=== PATIENT | female | born 1985 | race Caucasian/White ===

== ENCOUNTER 2016-11-07 19:04 | Observation (INO) | payer OTHER ==
[2016-11-07] MEDS ORDERED: LORazepam 2 MG/1 ML VIAL ONE (19:26)
[2016-11-07] MEDS ORDERED: LORazepam 2 MG/1 ML VIAL IVP ONE (19:30)
[2016-11-07] MEDS ORDERED: ONDANSETRON 4 MG/2 ML VIAL ONE (19:34)
[2016-11-07] MEDS ORDERED: Sodium Chloride 0.9% 1,000 ML ONE (19:34)
[2016-11-07] MEDS ORDERED: Sodium Chloride 0.9% 1,000 ML PRIMARY IV ONE ×3 (19:36→22:30)
[2016-11-07 19:42] LABS: BASOPHILS # (AUTO) 0.04 10*3/UL; BASOPHILS % (AUTO) 0.4 % (0-1); EOSINOPHILS % (AUTO) 1.4 % (0-8); HEMATOCRIT 38.7 % (37.0-47.0); HEMOGLOBIN 13.9 g/dL (12.0-16.0); IMM GRAN % (AUTO) 0.1 % (0-5); IMM GRAN# (AUTO) 0.01 10*3/UL; LYMPHOCYTES # (AUTO) 2.81 10*3/uL; LYMPHOCYTES % (AUTO) 30.9 % (10-50); MEAN CORPUSCULAR HEMOGLOBIN 34.3 PG (27-31); MEAN CORPUSCULAR HGB CONC 35.9 g/dL (33-37); MEAN PLATELET VOLUME 11.2 FL (7.4-12.2); MONOCYTES # (AUTO) 1.01 10*3/UL (0.3-0.8); MONOCYTES % (AUTO) 11.1 % (5-15); NEUTROPHILS # (AUTO) 5.08 10*3/UL; NEUTROPHILS % (AUTO) 56.1 % (50-80); RED BLOOD COUNT 4.05 10^6/uL (4.20-5.40); WHITE BLOOD COUNT 9.08 10^3/uL (4.8-10.8)
--- NOTE | 2016-11-07 19:42 | PDOC ---
Chest Pain HPI - General Chief Complaint: Chest Pain Stated Complaint: CHEST PAIN Date Seen by Provider: 11/07/16 Time Seen by Provider: 19:37 Source: Patient, Spouse Exam Limitations: POSITIVE: No limitations Treatment Prior to Arrival: REPORTS: None Nurse's Notes Reviewed & Considered: Yes - History of Present Illness Body Location Affected: REPORTS: Chest, Abdomen Timing: REPORTS: Abrupt, Getting Worse Duration: <24 hours Severity: Severe Context: REPORTS: Activity Quality: REPORTS: Pressure, Other (tachycardia) Radiation: REPORTS: None Associated Symptoms: REPORTS: Nausea, Vomiting, Shortness of Breath, Palpitations, Weakness Modifying Factors: improves with: None Reported Similar Symptoms Previously: No Any Prior Injuries Related to Current Complaint?: No - Patient Home Medications Home Medications: Home Medications Vits W-Ca,Fe,FA(<1Mg) [] 1 tab ORAL QD tab 10/07/12 Melatonin 10 mg PO PRN tab 05/15/16 Amitriptyline HCl 150 mg PO DAILY #30 tab 10/22/16 - Patient Allergies Allergies/Adverse Reactions: Allergies Allergy/AdvReac Type Severity Reaction Status Date / Time iodine Allergy Mild Anaphylaxis Verified 11/08/16 07:24 SEAFOOD Allergy Mild Anaphylaxis Uncoded 11/08/16 07:24 SEASONAL Allergy HEADACHE Uncoded 11/08/16 07:24 Past Medical History - heen HEENT History: Denies History Additional HEENT History: CHRONIC OTITIS MEDIA Cardiovascular History: Denies History Respiratory History: Denies History Gastrointestinal History: GERD, GI Bleed, Other (please comment) Additional Gastrointestinal History: 07/25 EGD DONE, FOUND ULCER AND HEMORRHAGIC GASTRICITIS Genitourinary History: Denies History Endocrine History: Denies History Musculoskeletal History: Denies History Neurological History: Denies History Blood Disorders: Denies History Psychiatric History: Depression, Anxiety Disorders, PTSD Additional Psychiatric History: LAST PANIC ATTACT, 3 MONTHS AGO History of Sexually Transmitted Diseases: No Cancer History: Denies History History of MDRO: Yes History of Other Communicable Diseases: No Alcohol Use: None Substance Use Type: None Previous Surgical History: Yes Anesthesia Reactions: No Malignant Hyperthermia: No Significant Family History: Cancer, Diabetes Additional Family History: MOTHER- CA, DMFATHER- CA, DM ROS - Limitations ROS Limitations: No Limitations Constitution: REPORTS: Diaphoresis Cardiovascular: REPORTS: Chest Pain, Heart Racing, Heart Palpitations Respiratory: REPORTS: Shortness Of Breath Neurological: REPORTS: Denies Neuro Symptoms Gastrointestinal: REPORTS: Nausea, Vomitting, Diarrhea Endocrine: REPORTS: Denies Symptoms Musculoskeletal: REPORTS: Denies MS Symptoms Genitourinary: REPORTS: Denies Symptoms Eyes: REPORTS: Denies Symptoms ENT: REPORTS: Denies Symptoms Skin: REPORTS: Denies Skin Symptoms Lympathic: REPORTS: Denies Lympathic Symptoms Immunologic: POSITIVE: Denies Symptoms Psychiatric: POSITIVE: Anxiety Chest Pain PE - General Appearance General Appearance: REPORTS: Cooperative, No Acute Distress, No Evidence of Trauma, Anxious - HEENT HEENT: POSITIVE: Head Inspection Nml, Eyes Inspection Nml, Ears Inspection Nml, Nose Inspection Nml, Oral/Dental Inspect. Nml, Pharynx Inspect. Nml, PERRL, EOMI - Neck Neck: REPORTS: Normal Inspection - Respiratory Respiratory: REPORTS: No Respiratory Distress, Breath Sounds Normal, Chest Non- Tender - Cardiovascular Cardiovascular: REPORTS: Regular Rate and Rhythm, Heart Sounds Normal - Abdomen Abdomen: Soft: (All Quadrants), Normal Bowel Sounds: (All Quadrants), Denies Tenderness: (All Quadrants) - Skin Skin: REPORTS: Intact, Normal For Race, Warm, Dry, No Rash - Extremities Extremity: Non-Tender: (All Extremities), Normal ROM: (All Extremities), Normal Inspection: (All Extremities) - Neurological / Psychological Neurological: POSITIVE: Affect Apporpriate, Oriented X3 Chest Pain Progress - Results Reviewed by me Xrays/CTs/US Reviewed by me: Yes Lab Results Reviewed: Yes Lab Results:: Laboratory Results 11/07/16 11/07/16 Range/Units 19:36 19:44 WBC 9.08 (4.8-10.8) 10^3/uL RBC 4.05 L (4.20-5.40) 10^6/uL Hgb 13.9 (12.0-16.0) g/dL Hct 38.7 (37.0-47.0) % MCV 95.6 (81-99) FL MCH 34.3 H (27-31) PG MCHC 35.9 (33-37) g/dL RDW Std Deviation 41.2 (39-50) fL RDW Coeff of Drew 12.0 (11.5-14.5) % Plt Count 265 (140-350) 10*3/uL MPV 11.2 (7.4-12.2) FL Immature Gran % (Auto) 0.1 (0-5) % Neut % (Auto) 56.1 (50-80) % Lymph % (Auto) 30.9 (10-50) % [place] % (Auto) 11.1 (5-15) % Eos % (Auto) 1.4 (0-8) % Baso % (Auto) 0.4 (0-1) % Immature Gran # (Auto) 0.01 10*3/UL Neut # (Auto) 5.08 10*3/UL Lymph # (Auto) 2.81 10*3/uL [place] # (Auto) 1.01 H (0.3-0.8) 10*3/UL Eos # (Auto) 0.13 10*3/UL Baso # (Auto) 0.04 10*3/UL WBC Morphology Comment Normal morphology (NORM) Plt Morphology Comment Normal morphology (NORM) RBC Morph Comment Normal morphology (NORM) D-Dimer < 0.19 (0.00-0.59) mg/L Sodium 139 (135-145) meq/L Potassium 2.9 L (3.8-5.2) meq/L Chloride 100 (98-112) meq/L Carbon Dioxide 20 L (23-33) meq/L Anion Gap 19 (5-20) BUN 12 (7-22) mg/dL Creatinine 0.6 (0.50-1.20) mg/dL Estimated GFR > 60 (>60 ml/min/1.73m(2)) BUN/Creatinine Ratio 20.00 (6-20) Glucose 135 H (78-110) mg/dL Calculated Osmolality 289.0 (267-292) mOsm/kg Calcium 10.1 (8.7-10.7) mg/dL Magnesium 1.5 L (1.6-2.4) mg/dL Total Bilirubin 0.9 (0.3-1.2) mg/dL AST 63 H (8-39) IU/L ALT 49 (9-52) IU/L Alkaline Phosphatase 68 (38-126) IU/L Troponin I < 0.012 (< 0.040) ng/mL Total Protein 8.2 H (6.1-8.0) g/dL Albumin 5.2 H (3.5-4.8) g/dL Globulin 3.0 (2.50-4.10) g/dL Albumin/Globulin Ratio 1.70 (1.3-2.0) mg/g TSH 4.05 (0.2700-4.2000) uIU/mL Free T4 1.22 (0.93-1.71) ng/dL Serum HCG, Qual Negative Ur Collection Type Clean catch urine Urine Color Yellow Urine Clarity Clear (CLEAR) Urine pH 7.5 (5.0-8.5) Ur Specific [place] 1.010 (1.005-1.030) Urine Protein Negative (NEG) mg/dl Urine Glucose (UA) Negative (NEG) mg/dL Urine Ketones Trace (NEG) Urine Occult Blood Negative (NEG) Urine Nitrate Negative (NEG) Urine Bilirubin Negative (NEG) Urine Urobilinogen 0.2 (0.2) EU/dL Ur Leukocyte Esterase Negative (NEG) Ur Culture Indicated? Culture not set - Patient's Progress Status: POSITIVE: Improved MDM / ED Course: Patient was evaluated, an IV started, blood drawn and sent to the lab for studies, EKG was obtained. Next Findings: Hypokalemia, hypo-magnesium. Assessment: Hypokalemia and hypomagnesemia next Plan: Admission, rehydration, replacement of electrolytes. Quality Measure Initiative: CP/AMI: POSITIVE: EKG - Consult Consulting MD will see pt:: POSITIVE: [facility] [place] Admit Counseled: POSITIVE: Patient, Family, RE: Lab Results, RE: Radiology Results, RE : DX Patient Care Time - Estimated PCT Patient Care Time (In Minutes): 30 Vital Signs - VS Reviewed Vital Signs Reviewed: Yes Discharge Clinical Impression: Chest pain Discharge Disposition: Admit to Inpatient Condition: Good Date Decision to Admit to Inpatient: 11/07/16 Time Decision to Admit to Inpatient: 20:00
[2016-11-07] MEDS ORDERED: ONDANSETRON 4 MG/2 ML VIAL IVP ONE (19:45)
[2016-11-07 19:46] LABS: PLATELET MORPHOLOGY COMMENT NORMAL MORPHOLOGY (NORM)
[2016-11-07 19:50] LABS: ASPARTATE AMINO TRANSFERASE 63 IU/L (8-39); BILIRUBIN,TOTAL 0.9 mg/dL (0.3-1.2); BLOOD UREA NITROGEN 12 mg/dL (7-22); CALCIUM 10.1 mg/dL (8.7-10.7); CHLORIDE 100 meq/L (98-112); CREATININE 0.6 mg/dL (0.50-1.20); EST GLOMERULAR FILTRATION > 60 (>60 ml/min/1.73m(2)); GLUCOSE 135 mg/dL (78-110); MAGNESIUM 1.5 mg/dL (1.6-2.4); POTASSIUM 2.9 meq/L (3.8-5.2); SODIUM 139 meq/L (135-145); TOTAL PROTEIN 8.2 g/dL (6.1-8.0)
[2016-11-07 20:15] LABS: FREE T4 (FREE THYROXINE) 1.22 ng/dL (0.93-1.71)
[2016-11-07 20:27] LABS: BILIRUBIN,URINE NEGATIVE (NEG); CLARITY,URINE CLEAR (CLEAR); GLUCOSE, URINE (UA) NEGATIVE (NEG); LEUKOCYTE ESTERASE ,URINE NEGATIVE (NEG); NITRATE,URINE NEGATIVE (NEG); OCCULT BLOOD,URINE NEGATIVE (NEG); PH,URINE 7.5 (5.0-8.5); PROTEIN,URINE NEGATIVE (NEG); UROBILINOGEN,URINE 0.2 EU/dL (0.2)
[2016-11-07 20:29] LABS: URINE SAMPLE TYPE CLEAN CATCH URINE
[2016-11-07] MEDS ORDERED: Magnesium Sulfate 2gm (Premix) 2 GM in Premix 1 BAG IV ONE ×2 (20:30→20:59)
--- NOTE | 2016-11-07 20:33 | EKG ---
[address] [address] Measurements Intervals [place] Rate: 129 P: 63 WV: 151 QRS: 71 QRSD: 95 T: 41 QT: 311 QTc: 387 Interpretive Statements SINUS TACHYCARDIA ABNORMAL RHYTHM ECG No previous ECG available for comparison Electronically Signed On 11-08-16 19:36:03 MST by Quan Oakes [email or web address]
--- NOTE | 2016-11-07 20:33 | PDOC ---
History and Physical - History of Present Illness History of Present Illness: Respiratory 11-year-old female with had some nausea and diarrhea the last few days also she was conscious. About 6 miles and ran for about 312 tachycardic was seen in the ER where she was found to be dehydrated with low potassium and low magnesium and anxiety she was admitted overnight for fluid hydration potassium and magnesium replacement this is all improved and is within normal limits this morning she feels much better and the back to her normal self she will be discharged in stable and improved condition. I have recommended she does not exercise for couple days keep hydrating herself and rest. Lungs are clear auscultation bilaterally heart S1-S2 regular rate rhythm Current Visit Problems Problem Status Priority Diagnosed Code Dehydration Acute E86.0 Hypokalemia Acute E87.6 Hypomagnesemia Acute E83.42 Laboratory Results 11/07/16 11/07/16 11/08/16 Range/Units 19:36 19:44 05:37 WBC 9.08 5.01 (4.8-10.8) 10^3/uL RBC 4.05 L 3.76 L (4.20-5.40) 10^6/uL Hgb 13.9 12.8 (12.0-16.0) g/dL Hct 38.7 36.8 L (37.0-47.0) % MCV 95.6 97.9 (81-99) FL MCH 34.3 H 34.0 H (27-31) PG MCHC 35.9 34.8 (33-37) g/dL RDW Std Deviation 41.2 42.0 (39-50) fL RDW Coeff of Drew 12.0 12.2 (11.5-14.5) % Plt Count 265 192 (140-350) 10*3/uL MPV 11.2 11.2 (7.4-12.2) FL Immature Gran % (Auto) 0.1 0.2 (0-5) % Neut % (Auto) 56.1 45.1 L (50-80) % Lymph % (Auto) 30.9 41.1 (10-50) % [place] % (Auto) 11.1 11.4 (5-15) % Eos % (Auto) 1.4 1.8 (0-8) % Baso % (Auto) 0.4 0.4 (0-1) % Immature Gran # (Auto) 0.01 0.01 10*3/UL Neut # (Auto) 5.08 2.26 10*3/UL Lymph # (Auto) 2.81 2.06 10*3/uL [place] # (Auto) 1.01 H 0.57 (0.3-0.8) 10*3/UL Eos # (Auto) 0.13 0.09 10*3/UL Baso # (Auto) 0.04 0.02 10*3/UL WBC Morphology Comment Normal morphology Normal morphology (NORM) Plt Morphology Comment Normal morphology Normal morphology (NORM) RBC Morph Comment Normal morphology Normal morphology (NORM) D-Dimer < 0.19 (0.00-0.59) mg/L Sodium 139 139 (135-145) meq/L Potassium 2.9 L 4.3 D (3.8-5.2) meq/L Chloride 100 108 (98-112) meq/L Carbon Dioxide 20 L 23 (23-33) meq/L Anion Gap 19 8 (5-20) BUN 12 6 L (7-22) mg/dL Creatinine 0.6 0.7 (0.50-1.20) mg/dL Estimated GFR > 60 > 60 (>60 ml/min/1.73m(2)) BUN/Creatinine Ratio 20.00 8.57 (6-20) Glucose 135 H 87 (78-110) mg/dL Calculated Osmolality 289.0 284.0 (267-292) mOsm/kg Calcium 10.1 8.6 L (8.7-10.7) mg/dL Magnesium 1.5 L 2.1 (1.6-2.4) mg/dL Total Bilirubin 0.9 1.0 (0.3-1.2) mg/dL AST 63 H 32 (8-39) IU/L ALT 49 38 (9-52) IU/L Alkaline Phosphatase 68 48 (38-126) IU/L Troponin I < 0.012 (< 0.040) ng/mL Total Protein 8.2 H 6.5 (6.1-8.0) g/dL Albumin 5.2 H 4.1 (3.5-4.8) g/dL Globulin 3.0 2.4 L (2.50-4.10) g/dL Albumin/Globulin Ratio 1.70 1.70 (1.3-2.0) mg/g TSH 4.05 (0.2700-4.2000) uIU/mL Free T4 1.22 (0.93-1.71) ng/dL Serum HCG, Qual Negative Ur Collection Type Clean catch urine Urine Color Yellow Urine Clarity Clear (CLEAR) Urine pH 7.5 (5.0-8.5) Ur Specific [place] 1.010 (1.005-1.030) Urine Protein Negative (NEG) mg/dl Urine Glucose (UA) Negative (NEG) mg/dL Urine Ketones Trace (NEG) Urine Occult Blood Negative (NEG) Urine Nitrate Negative (NEG) Urine Bilirubin Negative (NEG) Urine Urobilinogen 0.2 (0.2) EU/dL Ur Leukocyte Esterase Negative (NEG) Ur Culture Indicated? Culture not set Home Medications Medication Instructions Recorded Confirmed Type Vits W-Ca,Fe,FA(<1Mg) 1 tab ORAL QD tab 10/07/12 11/07/16 History [] Melatonin 10 mg PO PRN tab 05/15/16 11/07/16 History Amitriptyline HCl 150 mg PO DAILY #30 tab 10/22/16 11/07/16 Clinic Past Medical History Tobacco Use: Never Smoker Substance Use Type: None Medication / Allergies Home Medications: Home Medications Medication Instructions Recorded Confirmed Type Vits W-Ca,Fe,FA(<1Mg) 1 tab ORAL QD tab 10/07/12 11/07/16 History [] Melatonin 10 mg PO PRN tab 05/15/16 11/07/16 History Amitriptyline HCl 150 mg PO DAILY #30 tab 10/22/16 11/07/16 Clinic Allergies/Adverse Reactions: Allergies Allergy/AdvReac Type Severity Reaction Status Date / Time iodine Allergy Mild Anaphylaxis Verified 11/08/16 07:24 SEAFOOD Allergy Mild Anaphylaxis Uncoded 11/08/16 07:24 SEASONAL Allergy HEADACHE Uncoded 11/08/16 07:24 Review of Systems - Review of Systems All Systems: Reviewed & No Additional Complaints Except as Stated - Cardiovascular Cardiovascular: REPORTS: Palpitations - Gastrointestinal Gastrointestinal / Abdominal: REPORTS: Nausea, Diarrhea - Genitourinary Genitourinary: DENIES: Negative System Review, Pain, Burning, Hematuria, Incontinence, Urgency, Hesitant Stream, Decreased Stream, Nocutria, Discharge, Sexual Dyfunction, Other, See HPI - Neurological Neurologic: DENIES: Negative System Review, Headache, Numbness/Paresthesia, Tremors, Weakness, Seizures, Head Trauma, LOC, Dizziness, Confusion, Memory Loss , Difficulty Walking, Incoordination, Other, See HPI Exam - Vitals Vital Signs: Vital Signs Temperature 97.1 F Temperature Source Temporal Artery Scan Pulse Rate [Pulse Oximeter 135 Right] Pulse Rate [Telemetry] 135 Respiratory Rate 26 Blood Pressure [Left Arm] 139/111 Pulse Ox 100 Oxygen Delivery Method Room Air Height [1 of ] 20.5 in Height 5 ft 8 in Weight 62.596 kg - General General Appearance: POSITIVE: No Acute Distress, Cooperative - Head Head Exam: POSITIVE: Normal Inspection, Atraumatic - Eye Eye Exam: POSITIVE: Normal Appearance, PERRL, EOMI - Respiratory Respiratory Exam: POSITIVE: Clear to Auscultation - Bilaterally, Breathing Non Labored, Normal To Percussion, Normal to Percussion and Palpation - Cardiovascular Cardiovascular Exam: POSITIVE: RRR, No Murmur, No Clicks, No Gallops - GI/Abdominal GI/Abdominal Exam: POSITIVE: Normal Bowel Sounds, Non Tender, Soft - Extremities Extremities Exam: POSITIVE: No Clubbing Present, No Edema Present, No Cyanosis Present - Neurological Neurological Exam: POSITIVE: Alert, Oriented x 3, Reflexes Normal, CN II-XII Intact - Psychiatric Psychiatric Exam: POSITIVE: Normal Affect, Normal Mood Results - Labs CBC and BMP: 11/08/16 05:37 11/08/16 05:37 Labs - Last 24 Hours: Laboratory Results 11/07/16 11/07/16 Range/Units 19:36 19:44 WBC 9.08 (4.8-10.8) 10^3/uL RBC 4.05 L (4.20-5.40) 10^6/uL Hgb 13.9 (12.0-16.0) g/dL Hct 38.7 (37.0-47.0) % MCV 95.6 (81-99) FL MCH 34.3 H (27-31) PG MCHC 35.9 (33-37) g/dL RDW Std Deviation 41.2 (39-50) fL RDW Coeff of Drew 12.0 (11.5-14.5) % Plt Count 265 (140-350) 10*3/uL MPV 11.2 (7.4-12.2) FL Immature Gran % (Auto) 0.1 (0-5) % Neut % (Auto) 56.1 (50-80) % Lymph % (Auto) 30.9 (10-50) % [place] % (Auto) 11.1 (5-15) % Eos % (Auto) 1.4 (0-8) % Baso % (Auto) 0.4 (0-1) % Immature Gran # (Auto) 0.01 10*3/UL Neut # (Auto) 5.08 10*3/UL Lymph # (Auto) 2.81 10*3/uL [place] # (Auto) 1.01 H (0.3-0.8) 10*3/UL Eos # (Auto) 0.13 10*3/UL Baso # (Auto) 0.04 10*3/UL WBC Morphology Comment Normal morphology (NORM) Plt Morphology Comment Normal morphology (NORM) RBC Morph Comment Normal morphology (NORM) D-Dimer < 0.19 (0.00-0.59) mg/L Sodium 139 (135-145) meq/L Potassium 2.9 L (3.8-5.2) meq/L Chloride 100 (98-112) meq/L Carbon Dioxide 20 L (23-33) meq/L Anion Gap 19 (5-20) BUN 12 (7-22) mg/dL Creatinine 0.6 (0.50-1.20) mg/dL Estimated GFR > 60 (>60 ml/min/1.73m(2)) BUN/Creatinine Ratio 20.00 (6-20) Glucose 135 H (78-110) mg/dL Calculated Osmolality 289.0 (267-292) mOsm/kg Calcium 10.1 (8.7-10.7) mg/dL Magnesium 1.5 L (1.6-2.4) mg/dL Total Bilirubin 0.9 (0.3-1.2) mg/dL AST 63 H (8-39) IU/L ALT 49 (9-52) IU/L Alkaline Phosphatase 68 (38-126) IU/L Troponin I < 0.012 (< 0.040) ng/mL Total Protein 8.2 H (6.1-8.0) g/dL Albumin 5.2 H (3.5-4.8) g/dL Globulin 3.0 (2.50-4.10) g/dL Albumin/Globulin Ratio 1.70 (1.3-2.0) mg/g Serum HCG, Qual Negative Ur Collection Type Clean catch urine Urine Color Yellow Urine Clarity Clear (CLEAR) Urine pH 7.5 (5.0-8.5) Ur Specific [place] 1.010 (1.005-1.030) Urine Protein Negative (NEG) mg/dl Urine Glucose (UA) Negative (NEG) mg/dL Urine Ketones Trace (NEG) Urine Occult Blood Negative (NEG) Urine Nitrate Negative (NEG) Urine Bilirubin Negative (NEG) Urine Urobilinogen 0.2 (0.2) EU/dL Ur Leukocyte Esterase Negative (NEG) Ur Culture Indicated? Pending Assessment and Plan - Patient Problems (1) Hypomagnesemia Current Visit: Yes Status: Acute Comment: This was replaced (2) Hypokalemia Current Visit: Yes Status: Acute Comment: This was replaced (3) Dehydration Current Visit: Yes Status: Acute Comment: Hydrated now with good urine output (4) Tachycardia Current Visit: Yes Status: Acute Comment: Neck and artery to electrolyte imbalance and dehydration resolved now
[2016-11-07] MEDS ORDERED: LORazepam 2 MG/1 ML VIAL IVP PRN ×2 (21:59→22:05)
[2016-11-07] MEDS ORDERED: NORMAL SALINE 10 ML SYRINGE FLUSH IVP PRN (22:48)
[2016-11-07] MEDS: POTASSIUM CHLORIDE 20 MEQ TAB PO SCH ×2 (22:53→23:08)
[2016-11-07] MEDS ORDERED: ONDANSETRON 4 MG/2 ML VIAL IVP SCH (23:00)
[2016-11-08] MEDS ORDERED: ONDANSETRON 4 MG/2 ML VIAL IVP PRN (00:40)
[2016-11-08 05:46] LABS: BASOPHILS # (AUTO) 0.02 10*3/UL; BASOPHILS % (AUTO) 0.4 % (0-1); EOSINOPHILS % (AUTO) 1.8 % (0-8); HEMATOCRIT 36.8 % (37.0-47.0); HEMOGLOBIN 12.8 g/dL (12.0-16.0); IMM GRAN % (AUTO) 0.2 % (0-5); IMM GRAN# (AUTO) 0.01 10*3/UL; LYMPHOCYTES # (AUTO) 2.06 10*3/uL; LYMPHOCYTES % (AUTO) 41.1 % (10-50); MEAN CORPUSCULAR HGB CONC 34.8 g/dL (33-37); MEAN PLATELET VOLUME 11.2 FL (7.4-12.2); MONOCYTES # (AUTO) 0.57 10*3/UL (0.3-0.8); MONOCYTES % (AUTO) 11.4 % (5-15); NEUTROPHILS # (AUTO) 2.26 10*3/UL; NEUTROPHILS % (AUTO) 45.1 % (50-80); RDW COEFFICIENT OF VARIATION 12.2 % (11.5-14.5); RED BLOOD COUNT 3.76 10^6/uL (4.20-5.40); WHITE BLOOD COUNT 5.01 10^3/uL (4.8-10.8)
[2016-11-08 05:53] LABS: ASPARTATE AMINO TRANSFERASE 32 IU/L (8-39); BLOOD UREA NITROGEN 6 mg/dL (7-22); BUN/CREATININE RATIO 8.57 (6-20); CALCIUM 8.6 mg/dL (8.7-10.7); CHLORIDE 108 meq/L (98-112); CREATININE 0.7 mg/dL (0.50-1.20); EST GLOMERULAR FILTRATION > 60 (>60 ml/min/1.73m(2)); GLUCOSE 87 mg/dL (78-110); POTASSIUM 4.3 meq/L (3.8-5.2); SODIUM 139 meq/L (135-145); TOTAL PROTEIN 6.5 g/dL (6.1-8.0)
[2016-11-08] MEDS: POTASSIUM CHLORIDE 20 MEQ TAB PO SCH (06:59)
[2016-11-08 07:54] VITALS: RESP 16; TEMP 98.3
[2016-11-08 08:02] LABS: PLATELET MORPHOLOGY COMMENT NORMAL MORPHOLOGY (NORM)
--- NOTE | 2016-11-08 11:56 | DCSUMMARY ---
Hospitalization Summary Hospital Course: See H&P patient was admitted and discharged with a less than 24 hours Exam - Vitals Vital Signs: Vital Signs Temperature 98.3 F Temperature Source Temporal Artery Scan Pulse Rate [Pulse Oximeter 108 Right] Pulse Rate [Telemetry] 107 Pulse Rate 95 Respiratory Rate 16 Blood Pressure [Right Arm] 134/89 Blood Pressure 148/96 Pulse Ox 97 Oxygen Delivery Method Room Air Height 5 ft 8 in Weight 65.499 kg Patient Problems - Patient Problem List (1) Hypomagnesemia Current Visit: Yes Status: Acute (2) Hypokalemia Current Visit: Yes Status: Acute (3) Dehydration Current Visit: Yes Status: Acute (4) Tachycardia Current Visit: Yes Status: Acute
--- NOTE | 2016-11-08 14:24 | DI ---
CHEST X-RAY WITH ABDOMINAL SERIES, 11/07/2016 7:36 PM : Clinical History: Nausea, vomiting, and diarrhea. PA CHEST X-RAY: Previous Exam: None at this facility. There is no acute soft tissue or bony abnormality. There is no free air under the diaphragms. Heart s ize is normal. Lungs are clear. Mediastinal structures are normal. There are no pulmonary nodules. Reading: Normal PA chest x-ray. ABDOMINAL SERIES: KUB and upright abdomen films are submitted. There are no soft tissue or bony abnormalities. Bowel ga s pattern, psoas margins, and flank stripes are normal. There is no free air or fluid. There are no a bnormal radiodensities. An IUD is present. Reading: Normal abdominal series.
== END 2016-11-08 11:45 | disposition home or self-care (01) ==
LOC: ER 19:04 → MED/SURG 20:22
PROVIDERS: ADMIT Internal Medicine; ATTEND Internal Medicine
DX: R07.9 Chest pain, unspecified (principal); E83.42 Hypomagnesemia; E87.6 Hypokalemia; E86.0 Dehydration; R00.0 Tachycardia, unspecified
CPT/HCPCS: 36415; 74022; 80053; 81003; 83735; 84439; 84443; 84484; 84703; 85025; 85379; 93005; 93010; 96361; 96366; 96374; 96375; 96376; 99284; J2060; J2405; J3475; J7030

== ENCOUNTER 2017-01-15 11:55 | Observation (INO) | payer BC ==
[2017-01-15] MEDS ORDERED: NORMAL SALINE 10 ML SYRINGE FLUSH IVP PRN (12:08)
[2017-01-15] MEDS ORDERED: Sodium Chloride 0.9% 1,000 ML PRIMARY IV ONE (12:08)
[2017-01-15] MEDS ORDERED: ONDANSETRON 4 MG/2 ML VIAL IVP ONE (12:08)
[2017-01-15] MEDS ORDERED: MORPHINE SULFATE 4 MG/1 ML IVP ONE (12:09)
[2017-01-15 12:17] LABS: BASOPHILS # (AUTO) 0.03 10*3/UL; BASOPHILS % (AUTO) 0.5 % (0-1); EOSINOPHILS # (AUTO) 0.03 10*3/UL; EOSINOPHILS % (AUTO) 0.5 % (0-8); HEMATOCRIT 42.7 % (37.0-47.0); HEMOGLOBIN 14.9 g/dL (12.0-16.0); LYMPHOCYTES # (AUTO) 1.25 10*3/uL; MEAN CORPUSCULAR HEMOGLOBIN 33.3 PG (27-31); MEAN CORPUSCULAR HGB CONC 34.9 g/dL (33-37); MEAN CORPUSCULAR VOLUME 95.3 FL (81-99); MEAN PLATELET VOLUME 10.3 FL (7.4-12.2); MONOCYTES # (AUTO) 0.37 10*3/UL (0.3-0.8); MONOCYTES % (AUTO) 6.7 % (5-15); NEUTROPHILS # (AUTO) 3.82 10*3/UL; NEUTROPHILS % (AUTO) 69.4 % (50-80); RED BLOOD COUNT 4.48 10^6/uL (4.20-5.40)
[2017-01-15 12:19] LABS: PLATELET MORPHOLOGY COMMENT NORMAL MORPHOLOGY (NORM); RBC MORPHOLOGY COMMENT NORMAL MORPHOLOGY (NORM); WBC MORPHOLOGY COMMENT NORMAL MORPHOLOGY (NORM)
[2017-01-15] MEDS ORDERED: HYDROmorphone 2 MG/1 ML IVP ONE ×2 (12:25→12:48)
[2017-01-15 12:36] LABS: BLOOD UREA NITROGEN 9 mg/dL (7-22); BUN/CREATININE RATIO 12.85 (6-20); EST GLOMERULAR FILTRATION > 60 (>60 ml/min/1.73m(2)); LIPASE 52 IU/L (23-300); SERUM ALBUMIN 4.9 g/dL (3.5-4.8)
--- NOTE | 2017-01-15 12:51 | PDOC ---
Abdomen/Flank HPI - General Chief Complaint: Abdomen Pain Stated Complaint: left lower quad pain Date Seen by Provider: 01/15/17 Time Seen by Provider: 12:05 Source: POSITIVE: Patient Exam Limitations: POSITIVE: No limitations Nurse's Notes Reviewed & Considered: Yes - History of Present Illness Initial Comments: The patient is a 31-year-old female who presents to the emergency department with left lower abdominal pain. She states that she has had some pain in the left lower quadrant for the past couple of days. This is progressively intensified and this morning became quite intense. The pain now radiates to her left flank and shoulder region. She does have associated nausea and vomiting. She also has had diarrhea although she states this is not unusual for her is she has dumping syndrome from previous cholecystectomy. In addition she does report having fever for the past couple of days. She denies any urinary symptoms. Her last menstrual period was approximately 3 weeks ago and she does not think that she is . She has not had similar pain previously. She denies any recent trauma or illness. She has had ovarian cysts in the past however this pain is different in location and intensity. She denies any known history of kidney infections or kidney stones. Her only abdominal surgery is previous cholecystectomy. - Patient Home Medications Home Medications: Home Medications Alprazolam [Xanax] 1 tab PO PRN #14 tab 11/18/16 - Patient Allergies Allergies/Adverse Reactions: Allergies Allergy/AdvReac Type Severity Reaction Status Date / Time iodine Allergy Mild Anaphylaxis Verified 01/16/17 00:30 SEAFOOD Allergy Mild Anaphylaxis Uncoded 01/16/17 00:30 SEASONAL Allergy HEADACHE Uncoded 01/16/17 00:30 Past Medical History - heen HEENT History: Denies History Additional HEENT History: CHRONIC OTITIS MEDIA Cardiovascular History: Denies History Respiratory History: Denies History Gastrointestinal History: GERD, GI Bleed, Other (please comment) Additional Gastrointestinal History: 07/25 EGD DONE, FOUND ULCER AND HEMORRHAGIC GASTRICITIS Genitourinary History: Denies History Endocrine History: Denies History Musculoskeletal History: Denies History Neurological History: Denies History Blood Disorders: Denies History Psychiatric History: Depression, Anxiety Disorders, PTSD Additional Psychiatric History: LAST PANIC ATTACT, 3 MONTHS AGO History of Sexually Transmitted Diseases: No LMP: 3 weeks Cancer History: Denies History In Past Year Been Physically Harmed or Verbally Threatened: No History of MDRO: Yes History of Other Communicable Diseases: No Tobacco Use: Current Some Day Smoker Alcohol Use: None Substance Use Type: None Previous Surgical History: Yes Anesthesia Reactions: No Malignant Hyperthermia: No Significant Family History: Cancer, Diabetes Additional Family History: MOTHER- [place], DMFATHER- [place], DM Past Medical History Reviewed: Reviewed - No Changes ROS - Limitations ROS Limitations: No Limitations Constitution: REPORTS: Fever. DENIES: Chills Cardiovascular: REPORTS: Denies Cardiac Symptoms Respiratory: REPORTS: Denies Resp Symptoms, Hurts To Breathe (Pain is worsened with any movement including breathing, the pain however originates from her left lower abdomen) Gastrointestinal: REPORTS: Abdominal Pain, Nausea, Vomitting, Diarrhea. DENIES : Black Stools, Bloody Stools Musculoskeletal: REPORTS: Denies MS Symptoms Genitourinary: REPORTS: Flank Pain, Other (No vaginal bleeding or discharge, LMP was 3 weeks ago). DENIES: Dysuria, Hematuria, Difficulty Urinating Eyes: REPORTS: Denies Symptoms ENT: REPORTS: Denies Symptoms Skin: DENIES: Rash Abdominal/Flank Pain PE - General Appearance General Appearance: POSITIVE: Alert, Cooperative, No Acute Distress - HEENT HEENT: POSITIVE: Head Inspection Nml, Eyes Inspection Nml, Ears Inspection Nml, Nose Inspection Nml, PERRL, EOMI - Neck Neck: POSITIVE: Normal Inspection. NEGATIVE: Lymphadenopathy - Respiratory Respiratory: POSITIVE: No Respiratory Distress, Breath Sounds Normal - Cardiovascular Cardiovascular: POSITIVE: Regular Rate and Rhythm, Heart Sounds Normal - Abdomen Abdomen: Soft: (All Quadrants) Additional Abdominal Details: Bowel sounds are hypoactive, she does have tenderness even to light palpation in the left mid and left lower quadrants, in addition with palpation of the right she does have some rebound pain on the left, she also has left-sided CVA tenderness, no distention. - Skin Skin: POSITIVE: Intact, No Rash - Extremities Extremity: Normal ROM: (All Extremities), Normal Inspection: (All Extremities) - Neurological Neurological: POSITIVE: Oriented X3, Other (No focal neurologic deficits) Abdomen Progress - Results Reviewed by me Lab Results Reviewed: Yes Lab Results:: Laboratory Results 01/15/17 01/15/17 Range/Units 12:08 12:15 WBC 5.51 (4.8-10.8) 10^3/uL RBC 4.48 (4.20-5.40) 10^6/uL Hgb 14.9 (12.0-16.0) g/dL Hct 42.7 (37.0-47.0) % MCV 95.3 (81-99) FL MCH 33.3 H (27-31) PG MCHC 34.9 (33-37) g/dL RDW Std Deviation 40.8 (39-50) fL RDW Coeff of Drew 11.9 (11.5-14.5) % Plt Count 270 (140-350) 10*3/uL MPV 10.3 (7.4-12.2) FL Immature Gran % (Auto) 0.2 (0-5) % Neut % (Auto) 69.4 (50-80) % Lymph % (Auto) 22.7 (10-50) % [place] % (Auto) 6.7 (5-15) % Eos % (Auto) 0.5 (0-8) % Baso % (Auto) 0.5 (0-1) % Immature Gran # (Auto) 0.01 10*3/UL Neut # (Auto) 3.82 10*3/UL Lymph # (Auto) 1.25 10*3/uL [place] # (Auto) 0.37 (0.3-0.8) 10*3/UL Eos # (Auto) 0.03 10*3/UL Baso # (Auto) 0.03 10*3/UL WBC Morphology Comment Normal morphology (NORM) Plt Morphology Comment Normal morphology (NORM) RBC Morph Comment Normal morphology (NORM) Sodium 136 (135-145) meq/L Potassium 4.1 (3.8-5.2) meq/L Chloride 94 L (98-112) meq/L Carbon Dioxide 26 (23-33) meq/L Anion Gap 16 (5-20) BUN 9 (7-22) mg/dL Creatinine 0.7 (0.50-1.20) mg/dL Estimated GFR > 60 (>60 ml/min/1.73m(2)) BUN/Creatinine Ratio 12.85 (6-20) Glucose 98 (78-110) mg/dL Calculated Osmolality 280.0 (267-292) mOsm/kg Lactic Acid 2.3 H (0.70-2.10) MMOL/L Calcium 10.0 (8.7-10.7) mg/dL Total Bilirubin 0.8 (0.3-1.2) mg/dL AST 50 H (8-39) IU/L ALT 50 (9-52) IU/L Alkaline Phosphatase 45 (38-126) IU/L C-Reactive Protein < 0.5 (0.0-0.9) mg/dL Total Protein 8.0 (6.1-8.0) g/dL Albumin 4.9 H (3.5-4.8) g/dL Globulin 3.1 (2.50-4.10) g/dL Albumin/Globulin Ratio 1.50 (1.3-2.0) mg/g Amylase 67 (30-110) U/L Lipase 52 (23-300) IU/L Serum HCG, Qual Negative Ur Collection Type Clean catch urine Urine Color Yellow Urine Clarity Clear (CLEAR) Urine pH 8.5 (5.0-8.5) Ur Specific [place] 1.010 (1.005-1.030) Urine Protein Negative (NEG) mg/dl Urine Glucose (UA) Negative (NEG) mg/dL Urine Ketones Negative (NEG) Urine Occult Blood Negative (NEG) Urine Nitrate Negative (NEG) Urine Bilirubin Negative (NEG) Urine Urobilinogen 0.2 (0.2) EU/dL Ur Leukocyte Esterase Negative (NEG) Ur Culture Indicated? Culture not set - Patient's Progress MDM / ED Course: Because of recent fever blood cultures and lactate were drawn with IV start. An IV was established and she did receive 1 L bolus of normal saline. She received Zofran 4 mg and morphine 4 mg IV initially for nausea and pain. She had no pain relief and subsequently received Dilaudid 1 mg IV. Her pain did not seem to alleviate significantly and she received a second dose of Dilaudid 1 mg IV. Her abdominal exam was repeated and she seemed to have some guarding over the left mid and lower quadrants as well as hypoactive bowel sounds. She subsequently received Ativan 1 mg IV prior to going to CT. All of her blood work was essentially unremarkable. Her urinalysis was also normal. CT scan of the abdomen and pelvis with IV contrast was obtained. She does have bilateral kidney stones with no evidence of ureterolithiasis or hydronephrosis, no acute intra-abdominal findings per radiologist, she does have an IUD in place. Dr. Egan had been consulted from general surgery prior to the patient going to CT because of her escalating pain. Dr. Egan evaluated the patient in the emergency department and has made preparations to admit the patient for further treatment and monitoring. - Consult Counseled: POSITIVE: Patient, Family, RE: Lab Results, RE: Radiology Results, RE : DX Patient Care Time - Estimated PCT Patient Care Time (In Minutes): 40 Vital Signs - VS Reviewed Vital Signs Reviewed: Yes Discharge Clinical Impression: Nausea & vomiting, Left lower quadrant abdominal pain of unknown etiology Discharge Disposition: Admit to Observation Condition: Fair
[2017-01-15 12:54] LABS: C-REACTIVE PROTEIN < 0.5 mg/dL (0.0-0.9)
[2017-01-15] MEDS ORDERED: LORazepam 2 MG/1 ML VIAL ONE (13:00)
[2017-01-15] MEDS ORDERED: LORazepam 2 MG/1 ML VIAL IVP ONE (13:01)
[2017-01-15] MEDS ORDERED: Pantoprazole Inj 40 MG in Normal Saline Flush 10 ML IVP ONE (13:01)
[2017-01-15 13:02] LABS: BILIRUBIN,URINE NEGATIVE (NEG); COLOR,URINE YELLOW; GLUCOSE, URINE (UA) NEGATIVE (NEG); NITRATE,URINE NEGATIVE (NEG); OCCULT BLOOD,URINE NEGATIVE (NEG); PH,URINE 8.5 (5.0-8.5); PROTEIN,URINE NEGATIVE (NEG); UROBILINOGEN,URINE 0.2 EU/dL (0.2)
[2017-01-15 13:06] LABS: CLARITY,URINE CLEAR (CLEAR); URINE SAMPLE TYPE CLEAN CATCH URINE
--- NOTE | 2017-01-15 14:21 | DI ---
CT ABD W/CN AND PELVIS W/CN,01/15/2017 12:09 PM: Clinical History: Left lower quadrant pain and fever. Previous Exam: None at this facility. Findings: Multiple helically acquired CT images are obtained through the abdomen and pelvis without contrast, a nd demonstrate normal lung bases. The gallbladder is unremarkable. Patient is status post cholecystectomy. The spleen and adrenals are unremarkable. The pancreas is grossly normal. There is very mild bilatera l hydronephrosis without any evidence of obstructive uropathy. The urinary bladder is unremarkable. T he uterus and ovaries are grossly normal within intrauterine device noted within the endometrial maximus l. The skeletal structures are normal. There is no free air nor free fluid. Mild degenerative changes are noted at L5/S1. Impression: No acute intra-abdominal pathology.
[2017-01-15] MEDS ORDERED: KETOROLAC 30 MG/1 ML VIAL IVP ONE (14:24)
[2017-01-15] MEDS ORDERED: Ertapenem Inj 1 GM in Sodium Chloride 0.9% 100 ML IV ONE (14:26)
--- NOTE | 2017-01-15 14:53 | PDOC ---
History and Physical - History of Present Illness Date and Time of Service: 01/15/2017 patient seen at approximately 1:30 PM. Chief Complaint: Left lower quadrant abdominal pain with fevers, nausea, vomiting, and diarrhea. History of Present Illness: Patient is a 31-year-old female who reports problem started about 2 days ago. She noticed some left lower quadrant abdominal pain. The pain was progressive. This led to nausea, vomiting, and fevers up to the 102 at home. She had diarrhea as well. She is usually a little loose, after her gallbladder surgery , but this was much worse. The pain became unbearable. She felt best in the position. She had some pain radiating to her left and right back. The pain is exacerbated by movement although she reports she could not find a position of comfort. When she presented to the emergency room she was very tender. Secondary exam by the ER doctor showed almost a rigid abdomen. She got some pain medication and is feeling much better. She has never had a pain like this before. She describes the pain as a severe cramp. She reports she has a history of ulcers and a history of ovarian cysts. She denies urinary tract infection symptoms. She denies vaginal discharge. She had an IUD in place for about the last year. She feels that the string was a little higher than normal the last time she checked. In the ER lab work including a test and urinalysis was unremarkable. Blood cultures are pending. CT scan was reviewed and discussed with the radiologist. The intrauterine device appears to be within the endometrial canal. There is no free abdominal fluid or free air. There is mild hydronephrosis. There are a few parenchymal kidney stones bilaterally. The official reading is no acute intra-abdominal pathology. I am asked to see her for evaluation. Past Medical History Medical History: History of peptic ulcers. History of ovarian cysts. Surgical History: Status post laparoscopic cholecystectomy. Status post IUD insertion. Tobacco Use: Current Some Day Smoker Substance Use Type: None Medication / Allergies Home Medications: Home Medications Medication Instructions Recorded Confirmed Type Alprazolam [Xanax] 1 tab PO PRN #14 tab 11/18/16 01/15/17 Clinic Allergies/Adverse Reactions: Allergies Allergy/AdvReac Type Severity Reaction Status Date / Time iodine Allergy Mild Anaphylaxis Verified 01/15/17 12:01 SEAFOOD Allergy Mild Anaphylaxis Uncoded 01/15/17 12:01 SEASONAL Allergy HEADACHE Uncoded 01/15/17 12:01 Review of Systems - Gastrointestinal Gastrointestinal / Abdominal: REPORTS: Nausea, Vomiting, Diarrhea, Abdominal Pain, Poor Appetite, See HPI Exam - Vitals Vital Signs: Vital Signs Temperature 97.7 F Temperature Source Temporal Artery Scan Pulse Rate [Pulse Oximeter] 111 Respiratory Rate 18 Blood Pressure [Right Arm] 133/110 Pulse Ox 97 Oxygen Delivery Method Room Air Height [1 of 1] 20.5 in Height 5 ft 8 in Weight 62.596 kg - General General Appearance: POSITIVE: Cooperative, Mild Distress - Respiratory Respiratory Exam: POSITIVE: Clear to Auscultation - Bilaterally, Breathing Non Labored - Cardiovascular Cardiovascular Exam: POSITIVE: RRR, No Murmur - GI/Abdominal GI/Abdominal Exam: POSITIVE: Non Distended, Soft (The upper abdomen.), Firm ( Lower abdomen.), Guarding, Diminished Bowel Sounds, No Masses, Rebound (Left lower quadrant.), No Hepatomegaly, No Splenomegaly Additional GI/Abdominal Exam Details: Examination is fairly focal to the left lower quadrant and suprapubic regions. There is voluntary and involuntary guarding. She does not have a rigid abdomen. Bowel tones are decreased. There is some rebound. - Rectal Rectal Exam: POSITIVE: Deferred - Neurological Neurological Exam: POSITIVE: Alert, Oriented x 3 - Psychiatric Psychiatric Exam: POSITIVE: Normal Affect, Normal Mood Results - Labs CBC and BMP: 01/15/17 12:15 01/15/17 12:15 Labs - Last 24 Hours: Laboratory Results 01/15/17 01/15/17 Range/Units 12:08 12:15 WBC 5.51 (4.8-10.8) 10^3/uL RBC 4.48 (4.20-5.40) 10^6/uL Hgb 14.9 (12.0-16.0) g/dL Hct 42.7 (37.0-47.0) % MCV 95.3 (81-99) FL MCH 33.3 H (27-31) PG MCHC 34.9 (33-37) g/dL RDW Std Deviation 40.8 (39-50) fL RDW Coeff of Drew 11.9 (11.5-14.5) % Plt Count 270 (140-350) 10*3/uL MPV 10.3 (7.4-12.2) FL Immature Gran % (Auto) 0.2 (0-5) % Neut % (Auto) 69.4 (50-80) % Lymph % (Auto) 22.7 (10-50) % [place] % (Auto) 6.7 (5-15) % Eos % (Auto) 0.5 (0-8) % Baso % (Auto) 0.5 (0-1) % Immature Gran # (Auto) 0.01 10*3/UL Neut # (Auto) 3.82 10*3/UL Lymph # (Auto) 1.25 10*3/uL [place] # (Auto) 0.37 (0.3-0.8) 10*3/UL Eos # (Auto) 0.03 10*3/UL Baso # (Auto) 0.03 10*3/UL WBC Morphology Comment Normal morphology (NORM) Plt Morphology Comment Normal morphology (NORM) RBC Morph Comment Normal morphology (NORM) Sodium 136 (135-145) meq/L Potassium 4.1 (3.8-5.2) meq/L Chloride 94 L (98-112) meq/L Carbon Dioxide 26 (23-33) meq/L Anion Gap 16 (5-20) BUN 9 (7-22) mg/dL Creatinine 0.7 (0.50-1.20) mg/dL Estimated GFR > 60 (>60 ml/min/1.73m(2)) BUN/Creatinine Ratio 12.85 (6-20) Glucose 98 (78-110) mg/dL Calculated Osmolality 280.0 (267-292) mOsm/kg Lactic Acid 2.3 H (0.70-2.10) MMOL/L Calcium 10.0 (8.7-10.7) mg/dL Total Bilirubin 0.8 (0.3-1.2) mg/dL AST 50 H (8-39) IU/L ALT 50 (9-52) IU/L Alkaline Phosphatase 45 (38-126) IU/L C-Reactive Protein < 0.5 (0.0-0.9) mg/dL Total Protein 8.0 (6.1-8.0) g/dL Albumin 4.9 H (3.5-4.8) g/dL Globulin 3.1 (2.50-4.10) g/dL Albumin/Globulin Ratio 1.50 (1.3-2.0) mg/g Amylase 67 (30-110) U/L Lipase 52 (23-300) IU/L Serum HCG, Qual Negative Ur Collection Type Clean catch urine Urine Color Yellow Urine Clarity Clear (CLEAR) Urine pH 8.5 (5.0-8.5) Ur Specific [place] 1.010 (1.005-1.030) Urine Protein Negative (NEG) mg/dl Urine Glucose (UA) Negative (NEG) mg/dL Urine Ketones Negative (NEG) Urine Occult Blood Negative (NEG) Urine Nitrate Negative (NEG) Urine Bilirubin Negative (NEG) Urine Urobilinogen 0.2 (0.2) EU/dL Ur Leukocyte Esterase Negative (NEG) Ur Culture Indicated? Culture not set - Imaging Status: Image Reviewed by Me (And discussed with the radiologist.), Report Reviewed by Me Assessment and Plan - Patient Problems (1) Left lower quadrant abdominal pain of unknown etiology Current Visit: Yes Status: Acute Priority: High Diagnosis Date: 01/13/17 Comment: Etiology unclear. Nothing surgical on the CT scan, that is no free fluid or free air or inflammatory process. Does not have a rigid abdomen. I think most likely she either passed a kidney stone for ruptured an ovarian cyst with some bleeding not detectable on CT scan or possibly has a uterine perforation from her IUD with a small amount of blood in her pelvis. At this time I think is reasonable to observe her. We will start her on antibiotics because of her fever. We'll treat her with injectable anti-inflammatories and pain medicines as needed and follow her clinical course. If she fails to improve or deteriorates within the next 24 hours we will recommend laparoscopy. I discussed all the above with the patient and her . They agree to proceed as outlined. (2) Nausea & vomiting Current Visit: Yes Status: Acute Priority: Medium Diagnosis Date: 01/13/17 Comment: Controlled at this time. Continue hydration and appropriate medications. (3) Fever and chills Current Visit: Yes Status: Acute Priority: Medium Diagnosis Date: 01/13/17 Comment: No documented fevers here. She reports up to 102 at home. Blood cultures pending. No obvious source of infection. (4) Diarrhea Current Visit: Yes Status: Acute Priority: Medium Diagnosis Date: 01/13/17 Comment: Much worse than her baseline. If diarrhea continues we will get stool studies.
[2017-01-15] MEDS ORDERED: LIDOCAINE W/ SODIUM BICARB 0.5 ML SYR SUBD PRN (15:04)
[2017-01-15] MEDS ORDERED: oxyCODONE-ACETAMINOPHEN 5-325 TAB PO PRN (15:04)
[2017-01-15] MEDS: HYDROmorphone 2 MG/1 ML IVP PRN ×6 (15:33→22:43)
[2017-01-15] MEDS: 1/2NS + 20mEq KCL 1,000 ML PRIMARY IV SCH (15:41)
[2017-01-15] MEDS: Ertapenem Inj 1 GM in Sodium Chloride 0.9% 100 ML IV SCH (15:44)
[2017-01-15] MEDS: ONDANSETRON 4 MG/2 ML VIAL IVP PRN (17:05)
[2017-01-15] MEDS: NORMAL SALINE 10 ML SYRINGE FLUSH IVP PRN ×5 (19:16→22:44)
[2017-01-15] MEDS ORDERED: LORazepam 1 MG TABLET PO PRN (20:00)
[2017-01-15] MEDS: PROCHLORPERAZINE MALEATE RECTAL PRN (20:18)
[2017-01-15] MEDS ORDERED: KETOROLAC 30 MG/1 ML VIAL IVP PRN (20:30)
[2017-01-15] MEDS: KETOROLAC 30 MG/1 ML VIAL IVP SCH (21:04)
[2017-01-16] MEDS: ONDANSETRON 4 MG/2 ML VIAL IVP PRN ×2 (00:03→06:38)
[2017-01-16] MEDS: HYDROmorphone 2 MG/1 ML IVP PRN ×6 (00:05→10:49)
[2017-01-16] MEDS: NORMAL SALINE 10 ML SYRINGE FLUSH IVP PRN ×5 (00:06→07:13)
[2017-01-16] MEDS: 1/2NS + 20mEq KCL 1,000 ML PRIMARY IV SCH ×2 (00:28→11:18)
[2017-01-16] MEDS: LORazepam 2 MG/1 ML VIAL IVP PRN ×2 (02:12→08:24)
[2017-01-16] MEDS: KETOROLAC 30 MG/1 ML VIAL IVP SCH ×3 (03:13→15:50)
[2017-01-16] MEDS ORDERED: Sodium Chloride 0.9% 1,000 ML IV ONE (06:05)
[2017-01-16 06:10] LABS: BASOPHILS # (AUTO) 0.01 10*3/UL; BASOPHILS % (AUTO) 0.2 % (0-1); EOSINOPHILS # (AUTO) 0.26 10*3/UL; EOSINOPHILS % (AUTO) 6.2 % (0-8); HEMATOCRIT 36.7 % (37.0-47.0); HEMOGLOBIN 12.3 g/dL (12.0-16.0); MEAN CORPUSCULAR HGB CONC 33.5 g/dL (33-37); MEAN CORPUSCULAR VOLUME 98.4 FL (81-99); MEAN PLATELET VOLUME 11.1 FL (7.4-12.2); MONOCYTES # (AUTO) 0.44 10*3/UL (0.3-0.8); MONOCYTES % (AUTO) 10.5 % (5-15); NEUTROPHILS # (AUTO) 2.17 10*3/UL; RED BLOOD COUNT 3.73 10^6/uL (4.20-5.40)
[2017-01-16] MEDS ORDERED: Sodium Chloride 0.9% 500 ML PRIMARY IV ONE (06:14)
[2017-01-16 06:23] LABS: PLATELET MORPHOLOGY COMMENT NORMAL MORPHOLOGY (NORM); RBC MORPHOLOGY COMMENT NORMAL MORPHOLOGY (NORM); WBC MORPHOLOGY COMMENT NORMAL MORPHOLOGY (NORM)
[2017-01-16 06:31] LABS: BLOOD UREA NITROGEN 8 mg/dL (7-22); BUN/CREATININE RATIO 13.33 (6-20); CALCIUM 8.3 mg/dL (8.7-10.7); EST GLOMERULAR FILTRATION > 60 (>60 ml/min/1.73m(2)); LIPASE 22 IU/L (23-300); SERUM ALBUMIN 3.7 g/dL (3.5-4.8)
[2017-01-16] MEDS ORDERED: Pantoprazole Inj 40 MG in Normal Saline Flush 10 ML IVP SCH (09:00)
[2017-01-16] MEDS: PROCHLORPERAZINE MALEATE RECTAL PRN (09:43)
[2017-01-16] MEDS ORDERED: Sodium Chloride 0.9% 500 ML IV ONE (09:55)
[2017-01-16] MEDS ORDERED: D5-1/2NS + 20mEq KCL 1,000 ML PRIMARY IV SCH (10:00)
[2017-01-16] MEDS ORDERED: LORazepam 2 MG/1 ML VIAL IVP PRN (10:06)
--- NOTE | 2017-01-16 10:18 | PDOC(PROG) ---
Date and Time of Service: 01/16/2017. Patient seen initially at 9 AM Interval History: Still having abdominal pain. Had nausea and vomiting last night but that has resolved. Did get some sleep. Would like to try something to drink. Patient reports her abdominal pain is now above her umbilicus. The back pain is gone. She looks much more comfortable. Patient has had no bowel movements or passed gas since she was admitted. She now tells me that she had some bright red blood per rectum prior to admission. She has had that in the past. In she underwent upper and lower endoscopy. She had gastritis. Her colonoscopy as well as biopsies of her terminal ileum were unremarkable. This was done for possible Crohn's disease. Patient's last pain medicine was over an hour ago. She goes from laying down to sitting up easily and without obvious pain. She still rates her pain as between a 5-7/10. Patient is afebrile. Her vital signs are stable. Her urine output is low. She was given 1 bolus of 500 mL of normal saline earlier this morning. Adjustments have been made to her IV fluids. Objective : Data - Labs CBC and BMP: 01/16/17 05:45 01/16/17 05:45 Labs - Last 24 Hours: Laboratory Results 01/16/17 Range/Units 05:45 WBC 4.18 L (4.8-10.8) 10^3/uL RBC 3.73 L (4.20-5.40) 10^6/uL Hgb 12.3 (12.0-16.0) g/dL Hct 36.7 L (37.0-47.0) % MCV 98.4 (81-99) FL MCH 33.0 H (27-31) PG MCHC 33.5 (33-37) g/dL RDW Std Deviation 42.0 (39-50) fL RDW Coeff of Drew 12.1 (11.5-14.5) % Plt Count 181 (140-350) 10*3/uL MPV 11.1 (7.4-12.2) FL Immature Gran % (Auto) 0 (0-5) % Neut % (Auto) 52.0 (50-80) % Lymph % (Auto) 31.1 (10-50) % [place] % (Auto) 10.5 (5-15) % Eos % (Auto) 6.2 (0-8) % Baso % (Auto) 0.2 (0-1) % Immature Gran # (Auto) 0 10*3/UL Neut # (Auto) 2.17 10*3/UL Lymph # (Auto) 1.30 10*3/uL [place] # (Auto) 0.44 (0.3-0.8) 10*3/UL Eos # (Auto) 0.26 10*3/UL Baso # (Auto) 0.01 10*3/UL WBC Morphology Comment Normal morphology (NORM) Plt Morphology Comment Normal morphology (NORM) RBC Morph Comment Normal morphology (NORM) Sodium 136 (135-145) meq/L Potassium 4.0 (3.8-5.2) meq/L Chloride 103 (98-112) meq/L Carbon Dioxide 24 (23-33) meq/L Anion Gap 9 (5-20) BUN 8 (7-22) mg/dL Creatinine 0.6 (0.50-1.20) mg/dL Estimated GFR > 60 (>60 ml/min/1.73m(2)) BUN/Creatinine Ratio 13.33 (6-20) Glucose 99 (78-110) mg/dL Calculated Osmolality 279.0 (267-292) mOsm/kg Calcium 8.3 L (8.7-10.7) mg/dL Total Bilirubin 1.0 (0.3-1.2) mg/dL AST 51 H (8-39) IU/L ALT 62 H (9-52) IU/L Alkaline Phosphatase 49 (38-126) IU/L Total Protein 6.0 L (6.1-8.0) g/dL Albumin 3.7 (3.5-4.8) g/dL Globulin 2.3 L (2.50-4.10) g/dL Albumin/Globulin Ratio 1.60 (1.3-2.0) mg/g Lipase 22 L (23-300) IU/L - Imaging Imaging Details: Flat and upright abdominal x-rays done today show a nonspecific bowel gas pattern. There is one slightly generous air-filled loop of bowel in the left lower quadrant. There is gas throughout the small bowel and colon. - Vital Signs Vital Signs and I&O: Vital Signs - Last Taken Temperature 98.0 F 01/16/17 03:35 Pulse Rate 72 01/16/17 04:49 Respiratory Rate 14 01/16/17 03:35 Blood Pressure 107/66 01/16/17 03:35 Pulse Ox 92 01/16/17 04:49 Intake and Output (24hr x 4 totals) 01/14/17 01/15/17 01/16/17 01/17/17 05:59 05:59 05:59 05:59 Intake Total 2337 Output Total 780 Balance 1557 Objective : Exam - General General Appearance: No Acute Distress, Cooperative - Respiratory Respiratory Exam: Clear to Auscultation - Bilaterally, Breathing Non Labored - Cardiovascular Cardiovascular Exam: RRR, No Murmur - GI/Abdominal GI/Abdominal Exam: Non Distended, Soft, Diminished Bowel Sounds (Slightly diminished.), No Masses Additional GI/Abdominal Exam Details: She seems much less tender to me today. The focal tenderness in her left lower quadrant has resolved. The suprapubic tenderness has resolved. She is soft throughout but does complain of pain with deep palpation. No longer has voluntary guarding. No costovertebral angle tenderness. Seems improved since yesterday when I saw her. - Rectal Rectal Exam: Deferred - External Exam: Deferred Exam: Deferred - Neurological Neurological Exam: Alert, Oriented x 3 - Psychiatric Psychiatric Exam: Normal Affect, Normal Mood Assessment and Plan - Patient Problems (1) Left lower quadrant abdominal pain of unknown etiology Current Visit: Yes Status: Acute Priority: High Diagnosis Date: 01/13/17 Comment: Patient states her pain is the same but she seems clearly improved to me. Etiology remains unclear. Exam is nonfocal. No fever or white count elevation. Vital signs are stable. Certainly not an acute abdomen. At this time we'll continue conservative therapy. No indication for surgical intervention. I discussed this with the patient and her . We will start clear liquids. We'll rehydrate her. We'll follow her clinical course and check labs in the morning. I came prepared this morning to do a laparoscopy but I see no indications to do one at this time. (2) Nausea & vomiting Current Visit: Yes Status: Acute Priority: Medium Diagnosis Date: 01/13/17 Comment: Resolved at present. (3) Fever and chills Current Visit: Yes Status: Acute Priority: Medium Diagnosis Date: 01/13/17 Comment: No fever since admission. (4) Diarrhea Current Visit: Yes Status: Acute Priority: Medium Diagnosis Date: 01/13/17 Comment: No diarrhea since admission.
[2017-01-16] MEDS ORDERED: SCOPOLAMINE HYDROBROMIDE 1.5 MG - 1 EACH PATCH TRANSDERM SCH (15:00)
[2017-01-16] MEDS ORDERED: HYDROmorphone 2 MG/1 ML IVP PRN (15:11)
[2017-01-16] MEDS: Ertapenem Inj 1 GM in Sodium Chloride 0.9% 100 ML IV SCH (15:49)
[2017-01-16 16:58] VITALS: RESP 12; TEMP 98.6
--- NOTE | 2017-01-16 19:17 | DCSUMMARY ---
Discharge Summary Admit Date: 01/15/17 Discharge Date: 01/16/17 Admitting Diagnosis: left lower quadrant abdominal pain, fever, diarrhea, nausea and vomiting. Discharge Diagnosis: Left lower quadrant abdominal pain of unknown etiology, fever at home, nausea and vomiting, and diarrhea, at home, with some bright red blood per rectum. Primary Surgery and Date: No surgical procedures. Hospital Course: Patient was admitted with left lower quadrant abdominal pain with fever at home , diarrhea at home, nausea and vomiting. She did not have any surgical findings. Neither on CT scan or clinical exam. We treated her conservatively with hydration, antibiotics, pain medicine, and antinausea medications. She was doing better this morning but not ready to go home. She was still requiring pain medicines. She hasn't had any pain medicine since about noon. She rates her pain as a 2-3 out of 10. She got a scopolamine patch this afternoon and has had no further nausea or vomiting. She has passed gas on several occasions. She is tolerating some clear liquids. She is requesting discharge home to recover. Patient CT scan showed no intra-abdominal pathology. Her lab was all essentially normal. Her urinalysis was normal. test was normal. Blood cultures 2 are normal at 24 hours. She does not have a surgical abdomen on clinical exam. She has not had a bowel movement since she got here. She's had no documented fevers since she's been hospitalized. Exam - Vitals Vital Signs: Vital Signs Temperature 98.6 F Temperature Source Temporal Artery Scan Pulse Rate [Pulse Oximeter] 74 Respiratory Rate 12 Blood Pressure [Right Arm] 102/66 Pulse Ox 93 Oxygen Flow Rate 1 Oxygen Delivery Method Room Air Height 5 ft 8 in Weight 66.769 kg - General General Appearance: POSITIVE: No Acute Distress, Cooperative - Respiratory Respiratory Exam: POSITIVE: Clear to Auscultation - Bilaterally, Breathing Non Labored - Cardiovascular Cardiovascular Exam: POSITIVE: RRR, No Murmur - GI/Abdominal GI/Abdominal Exam: POSITIVE: Normal Bowel Sounds, Non Distended, Soft Additional GI/Abdominal Exam Details: Mild left lower quadrant tenderness. No guarding, rebound, or peritoneal signs. - Neurological Neurological Exam: POSITIVE: Alert, Oriented x 3 - Psychiatric Psychiatric Exam: POSITIVE: Normal Affect, Normal Mood Data Perinent Studies: CT scan showed acute intra-abdominal pathology. Procedures: None. Patient Problems - Patient Problem List (1) Left lower quadrant abdominal pain of unknown etiology Current Visit: Yes Status: Acute Diagnosis Date: 01/13/17 Priority: High Comment: Essentially resolved. Minimal left lower quadrant tenderness. Etiology unclear. Possible bleeding from a ruptured ovarian cyst. Probable gastroenteritis. We'll see her in the office later this week for further evaluation. With her history of gastritis consider upper endoscopy. With her history of abdominal pain and bright red blood per rectum consider follow-up colonoscopy to rule out inflammatory bowel disease. I discussed all the above with the patient and her . (2) Nausea & vomiting Current Visit: Yes Status: Acute Diagnosis Date: 01/13/17 Priority: Medium Comment: Resolved with a scopolamine patch and sensitization of the narcotics. (3) Fever and chills Current Visit: Yes Status: Acute Diagnosis Date: 01/13/17 Priority: Medium Comment: No fevers since admission. (4) Diarrhea Current Visit: Yes Status: Acute Diagnosis Date: 01/13/17 Priority: Medium Comment: No further diarrhea.
[2017-01-19] MEDS ORDERED: Patch Removal PATCH TRANSDERM SCH (15:00)
== END 2017-01-16 19:31 | disposition home or self-care (01) ==
LOC: ER 11:55 → UNDOADMOB 14:45 → MED/SURG 14:45 → UNDODISOB 01-16 19:31
PROVIDERS: ADMIT Surgery; ATTEND Surgery
DX: R10.32 Left lower quadrant pain (principal); R50.9 Fever, unspecified; R11.2 Nausea with vomiting, unspecified; R19.7 Diarrhea, unspecified; K62.5 Hemorrhage of anus and rectum
CPT/HCPCS: 36415; 74020; 74177; 80053 ×2; 81003; 82150; 83605; 83690 ×2; 84703; 85025 ×2; 86140; 87040; 96361; 96365 ×2; 96375 ×3; 96376; 99284 ×2; J1885 ×2; 96374; J1170; J1335; J2060; J2270; J2405; J3490; J7030; J7040; J7050

== ENCOUNTER 2017-01-19 11:12 | Inpatient (IN) | payer BC, OTHER ==
[2017-01-19] MEDS ORDERED: KETOROLAC 15 MG/1 ML VIAL IVP ONE (11:24)
[2017-01-19] MEDS ORDERED: Sodium Chloride 0.9% 1,000 ML PRIMARY IV ONE (11:24)
[2017-01-19] MEDS ORDERED: NORMAL SALINE 10 ML SYRINGE FLUSH IVP PRN ×2 (11:24→15:05)
[2017-01-19] MEDS ORDERED: SCOPOLAMINE HYDROBROMIDE 1.5 MG - 1 EACH PATCH TRANSDERM ONE (11:26)
--- NOTE | 2017-01-19 11:33 | PDOC ---
Abdomen/Flank HPI - General Chief Complaint: Abdomen Pain Stated Complaint: abd pain Date Seen by Provider: 01/19/17 Time Seen by Provider: 11:20 Source: POSITIVE: Patient Exam Limitations: POSITIVE: No limitations Nurse's Notes Reviewed & Considered: Yes - History of Present Illness Initial Comments: The patient is a 31-year-old female who presents to the emergency department with continued left-sided abdominal pain and back pain. She had been evaluated here last Wednesday with complaints of severe left-sided abdominal pain that radiated through to her back. She had undergone CT at that time which did not show any obvious acute abnormalities and her blood work and urinalysis were normal then as well. She had been admitted per Dr. Egan. The next day she thought she was feeling well enough to go home although she admits that she was still having some pain at that time. She reports that over the past several days she has had continued pain which seems to be worsening. Her pain is primarily in the left lower abdomen although now radiates into the epigastric region into the left flank area. She has associated nausea and vomiting. In addition over the past 24 hours she has developed bloody diarrhea and has had 4 episodes in the last 24 hours. She also reports that her IUD fell out over the weekend. She has had continued fevers at home up to 101. She had a follow-up appointment with Dr. Egan this morning and on presentation there she was quite miserable and was referred back here to the emergency department for evaluation. - Patient Home Medications Home Medications: Home Medications Alprazolam [Xanax] 1 tab PO PRN #14 tab 11/18/16 Melatonin 4 cap PO bedtime PRN cap 01/19/17 - Patient Allergies Allergies/Adverse Reactions: Allergies Allergy/AdvReac Type Severity Reaction Status Date / Time SEAFOOD Allergy Mild Anaphylaxis Uncoded 01/19/17 11:18 SEASONAL Allergy HEADACHE Uncoded 01/19/17 11:18 Past Medical History - heen HEENT History: Denies History Additional HEENT History: CHRONIC OTITIS MEDIA Cardiovascular History: Denies History Respiratory History: Denies History Gastrointestinal History: GERD, GI Bleed, Other (please comment) Additional Gastrointestinal History: 07/25 EGD DONE, FOUND ULCER AND HEMORRHAGIC GASTRICITIS Genitourinary History: Denies History Additional Genitourinary History: Rabdomylosis 2 months ago Endocrine History: Denies History Musculoskeletal History: Denies History Neurological History: Denies History Blood Disorders: Denies History Psychiatric History: Depression, Anxiety Disorders, PTSD Additional Psychiatric History: LAST PANIC ATTACT, 3 MONTHS AGO History of Sexually Transmitted Diseases: No Cancer History: Denies History History of MDRO: Yes History of Other Communicable Diseases: No Alcohol Use: None Substance Use Type: None Previous Surgical History: Yes Anesthesia Reactions: No Malignant Hyperthermia: No Significant Family History: Cancer, Diabetes Additional Family History: MOTHER- [place], DMFATHER- CA, DM Past Medical History Reviewed: Reviewed - No Changes ROS - Limitations ROS Limitations: No Limitations Constitution: REPORTS: Fever Cardiovascular: DENIES: Chest Pain, Heart Racing, Heart Palpitations, Edema Respiratory: DENIES: Hurts To Breathe, Shortness Of Breath Neurological: REPORTS: Denies Neuro Symptoms, Dizziness (She is lightheaded especially with standing) Gastrointestinal: REPORTS: Abdominal Pain, Nausea, Vomitting, Diarrhea, Bloody Stools Musculoskeletal: REPORTS: Denies MS Symptoms Genitourinary: REPORTS: Flank Pain, Other (No vaginal bleeding or discharge, her IUD did fall out over the weekend). DENIES: Dysuria, Hematuria, Difficulty Urinating Eyes: REPORTS: Denies Symptoms ENT: REPORTS: Denies Symptoms Skin: DENIES: Rash Abdominal/Flank Pain PE - General Appearance General Appearance: POSITIVE: Alert, Cooperative, Other (She does appear to be in pain) - HEENT HEENT: POSITIVE: Head Inspection Nml, Eyes Inspection Nml, Pharynx Inspect. Nml , Dry Mucous Membranes - Neck Neck: POSITIVE: Normal Inspection. NEGATIVE: Lymphadenopathy - Respiratory Respiratory: POSITIVE: No Respiratory Distress, Breath Sounds Normal - Cardiovascular Cardiovascular: POSITIVE: Regular Rate and Rhythm, Heart Sounds Normal Peripheral Pulses: Dorsalis-pedis (R): 2+, Dorsalis-pedis (L): 2+ - Abdomen Abdomen: Soft: (All Quadrants), Normal Bowel Sounds: (All Quadrants), No Distention: (All Quadrants) Additional Abdominal Details: She has tenderness even to very light palpation in the left lower quadrant and with palpation of the right lower quadrant she has pain that originates from the left side, she also has significant left-sided CVA tenderness - Back Back: POSITIVE: CVA Tenderness (L) - Skin Skin: POSITIVE: Intact, No Rash - Extremities Extremity: Normal ROM: (All Extremities), Normal Inspection: (All Extremities) - Neurological Neurological: POSITIVE: Oriented X3, Motor Normal, Sensation Normal Abdomen Progress - Results Reviewed by me Xrays/CTs/US Reviewed by me: Yes Discussed with Radiologist: Yes Radiology Findings: CT scan of the abdomen and pelvis with oral, rectal and IV contrast reveals no acute intra-abdominal abnormality per radiologist. Lab Results Reviewed: Yes Lab Results:: Laboratory Results 01/19/17 01/19/17 01/19/17 Range/Units 11:34 11:35 11:43 WBC 6.55 (4.8-10.8) 10^3/uL RBC 4.36 (4.20-5.40) 10^6/uL Hgb 14.7 (12.0-16.0) g/dL Hct 42.1 (37.0-47.0) % MCV 96.6 (81-99) FL MCH 33.7 H (27-31) PG MCHC 34.9 (33-37) g/dL RDW Std Deviation 41.5 (39-50) fL RDW Coeff of Drew 12.2 (11.5-14.5) % Plt Count 245 (140-350) 10*3/uL MPV 10.2 (7.4-12.2) FL Immature Gran % (Auto) 0.2 (0-5) % Neut % (Auto) 70.2 (50-80) % Lymph % (Auto) 24.4 (10-50) % [place] % (Auto) 4.3 L (5-15) % Eos % (Auto) 0.6 (0-8) % Baso % (Auto) 0.3 (0-1) % Immature Gran # (Auto) 0.01 10*3/UL Neut # (Auto) 4.60 10*3/UL Lymph # (Auto) 1.60 10*3/uL [place] # (Auto) 0.28 L (0.3-0.8) 10*3/UL Eos # (Auto) 0.04 10*3/UL Baso # (Auto) 0.02 10*3/UL WBC Morphology Comment Normal morphology (NORM) Plt Morphology Comment Normal morphology (NORM) RBC Morph Comment Normal morphology (NORM) Sodium 147 H D (135-145) meq/L Potassium 3.9 (3.8-5.2) meq/L Chloride 106 (98-112) meq/L Carbon Dioxide 23 (23-33) meq/L Anion Gap 18 (5-20) BUN 16 (7-22) mg/dL Creatinine 0.7 (0.50-1.20) mg/dL Estimated GFR > 60 (>60 ml/min/1.73m(2)) BUN/Creatinine Ratio 22.85 H (6-20) Glucose 71 L (78-110) mg/dL Calculated Osmolality 302.0 H (267-292) mOsm/kg Lactic Acid 3.2 H (0.70-2.10) MMOL/L Calcium 9.1 (8.7-10.7) mg/dL Magnesium 1.8 (1.6-2.4) mg/dL Total Bilirubin 0.6 (0.3-1.2) mg/dL AST 36 (8-39) IU/L ALT 48 (9-52) IU/L Alkaline Phosphatase 61 (38-126) IU/L Total Creatine Kinase 71 (30-136) IU/L CK-MB (CK-2) < 0.22 (0.00-5.00) NG/ML C-Reactive Protein < 0.5 (0.0-0.9) mg/dL Total Protein 7.6 (6.1-8.0) g/dL Albumin 4.6 (3.5-4.8) g/dL Globulin 3.0 (2.50-4.10) g/dL Albumin/Globulin Ratio 1.50 (1.3-2.0) mg/g Amylase 53 (30-110) U/L Lipase 51 (23-300) IU/L Serum HCG, Qual Negative Ur Collection Type Urine Color Urine Clarity (CLEAR) Urine pH (5.0-8.5) Ur Specific [place] (1.005-1.030) Urine Protein (NEG) mg/dl Urine Glucose (UA) (NEG) mg/dL Urine Ketones (NEG) Urine Occult Blood (NEG) Urine Nitrate (NEG) Urine Bilirubin (NEG) Urine Urobilinogen (0.2) EU/dL Ur Leukocyte Esterase (NEG) Urine RBC (NONE) /hpf Urine WBC (NONE) Ur Squamous Epith Cells (NONE) Ur Renal Epithelial Cell (NONE) Urine Crystals Urine Bacteria (NONE) Urine Casts (NONE) Urine Mucus (NONE) Urine Trichomonas (NONE) Urine Yeast (NONE) Ur Culture Indicated? Serum Alcohol 81 H (0-10) mg/dL 01/19/17 Range/Units 11:52 WBC (4.8-10.8) 10^3/uL RBC (4.20-5.40) 10^6/uL Hgb (12.0-16.0) g/dL Hct (37.0-47.0) % MCV (81-99) FL MCH (27-31) PG MCHC (33-37) g/dL RDW Std Deviation (39-50) fL RDW Coeff of Drew (11.5-14.5) % Plt Count (140-350) 10*3/uL MPV (7.4-12.2) FL Immature Gran % (Auto) (0-5) % Neut % (Auto) (50-80) % Lymph % (Auto) (10-50) % [place] % (Auto) (5-15) % Eos % (Auto) (0-8) % Baso % (Auto) (0-1) % Immature Gran # (Auto) 10*3/UL Neut # (Auto) 10*3/UL Lymph # (Auto) 10*3/uL [place] # (Auto) (0.3-0.8) 10*3/UL Eos # (Auto) 10*3/UL Baso # (Auto) 10*3/UL WBC Morphology Comment (NORM) Plt Morphology Comment (NORM) RBC Morph Comment (NORM) Sodium (135-145) meq/L Potassium (3.8-5.2) meq/L Chloride (98-112) meq/L Carbon Dioxide (23-33) meq/L Anion Gap (5-20) BUN (7-22) mg/dL Creatinine (0.50-1.20) mg/dL Estimated GFR (>60 ml/min/1.73m(2)) BUN/Creatinine Ratio (6-20) Glucose (78-110) mg/dL Calculated Osmolality (267-292) mOsm/kg Lactic Acid (0.70-2.10) MMOL/L Calcium (8.7-10.7) mg/dL Magnesium (1.6-2.4) mg/dL Total Bilirubin (0.3-1.2) mg/dL AST (8-39) IU/L ALT (9-52) IU/L Alkaline Phosphatase (38-126) IU/L Total Creatine Kinase (30-136) IU/L CK-MB (CK-2) (0.00-5.00) NG/ML C-Reactive Protein (0.0-0.9) mg/dL Total Protein (6.1-8.0) g/dL Albumin (3.5-4.8) g/dL Globulin (2.50-4.10) g/dL Albumin/Globulin Ratio (1.3-2.0) mg/g Amylase (30-110) U/L Lipase (23-300) IU/L Serum HCG, Qual Ur Collection Type Clean catch urine Urine Color Yellow Urine Clarity Clear (CLEAR) Urine pH 7.0 (5.0-8.5) Ur Specific [place] 1.020 (1.005-1.030) Urine Protein 30 (NEG) mg/dl Urine Glucose (UA) Negative (NEG) mg/dL Urine Ketones 15 (NEG) Urine Occult Blood Negative (NEG) Urine Nitrate Negative (NEG) Urine Bilirubin Negative (NEG) Urine Urobilinogen 1.0 (0.2) EU/dL Ur Leukocyte Esterase Negative (NEG) Urine RBC None (NONE) /hpf Urine WBC None (NONE) Ur Squamous Epith Cells Moderate (NONE) Ur Renal Epithelial Cell None (NONE) Urine Crystals None Urine Bacteria None (NONE) Urine Casts None (NONE) Urine Mucus Few (NONE) Urine Trichomonas None (NONE) Urine Yeast None (NONE) Ur Culture Indicated? Culture not set Serum Alcohol (0-10) mg/dL - Patient's Progress MDM / ED Course: Dr. Egan had called prior to the patient's arrival and he recommended repeat lab work as well as a CT of her abdomen and pelvis with oral, IV and rectal contrast. An IV was established and the patient did receive a 1 L bolus of normal saline. She states that she prefers not to have any narcotic medications that she thought that this made her worse last time she was here. In addition a scopolamine patches what seemed to work best for her for nausea. She was given Toradol 15 mg IV and a scopolamine patch was placed. After CT Dr. Egan evaluated the patient here in the emergency department. Her CAT scan reveals no acute intra-abdominal findings and her lab work is all essentially unremarkable. Current plan is for admission to the hospitalist service with consultation from Dr. Egan. He plans on doing upper and lower endoscopies tomorrow after a prep. - Consult Counseled: POSITIVE: Patient, RE: Lab Results, RE: Radiology Results, RE: DX, RE : Need for F/U Patient Care Time - Estimated PCT Patient Care Time (In Minutes): 30 Vital Signs - Recent Vital Signs Vital Signs: Vital Signs (Last 8 hours) Temp Pulse Resp BP Pulse Ox 01/19/17 11:13 97.6 F 94 16 134/100 97 - VS Reviewed Vital Signs Reviewed: Yes Discharge Clinical Impression: Abdominal pain, Nausea & vomiting Discharge Disposition: Admit to Inpatient Condition: Stable Date Decision to Admit to Inpatient: 01/19/17 Time Decision to Admit to Inpatient: 14:20
[2017-01-19 11:36] LABS: BASOPHILS # (AUTO) 0.02 10*3/UL; BASOPHILS % (AUTO) 0.3 % (0-1); EOSINOPHILS # (AUTO) 0.04 10*3/UL; EOSINOPHILS % (AUTO) 0.6 % (0-8); HEMATOCRIT 42.1 % (37.0-47.0); HEMOGLOBIN 14.7 g/dL (12.0-16.0); MEAN CORPUSCULAR HEMOGLOBIN 33.7 PG (27-31); MEAN CORPUSCULAR HGB CONC 34.9 g/dL (33-37); MEAN CORPUSCULAR VOLUME 96.6 FL (81-99); MEAN PLATELET VOLUME 10.2 FL (7.4-12.2); MONOCYTES # (AUTO) 0.28 10*3/UL (0.3-0.8); MONOCYTES % (AUTO) 4.3 % (5-15); NEUTROPHILS % (AUTO) 70.2 % (50-80); RED BLOOD COUNT 4.36 10^6/uL (4.20-5.40)
[2017-01-19 11:44] LABS: PLATELET MORPHOLOGY COMMENT NORMAL MORPHOLOGY (NORM); RBC MORPHOLOGY COMMENT NORMAL MORPHOLOGY (NORM); WBC MORPHOLOGY COMMENT NORMAL MORPHOLOGY (NORM)
[2017-01-19 11:46] LABS: BLOOD UREA NITROGEN 16 mg/dL (7-22); BUN/CREATININE RATIO 22.85 (6-20); CALCIUM 9.1 mg/dL (8.7-10.7); EST GLOMERULAR FILTRATION > 60 (>60 ml/min/1.73m(2)); MAGNESIUM 1.8 mg/dL (1.6-2.4); SERUM ALBUMIN 4.6 g/dL (3.5-4.8)
[2017-01-19 11:47] LABS: LIPASE 51 IU/L (23-300)
[2017-01-19 12:00] LABS: BILIRUBIN,URINE NEGATIVE (NEG); COLOR,URINE YELLOW; GLUCOSE, URINE (UA) NEGATIVE (NEG); NITRATE,URINE NEGATIVE (NEG); OCCULT BLOOD,URINE NEGATIVE (NEG); PROTEIN,URINE 30 mg/dl (NEG)
[2017-01-19 12:03] LABS: CLARITY,URINE CLEAR (CLEAR)
[2017-01-19 12:20] LABS: SQUAMOUS EPITHELIAL CELL,UR MODERATE; URINE SAMPLE TYPE CLEAN CATCH URINE
[2017-01-19] MEDS ORDERED: Pantoprazole Inj 40 MG in Normal Saline Flush 10 ML IVP ONE (12:46)
--- NOTE | 2017-01-19 14:05 | DI ---
CT ABD W/CN AND PELVIS W/CN,01/19/2017 11:25 AM: Clinical History: Abdominal pain Previous Exam: January 15, 2017 Findings: Multiple helically acquired CT images are obtained through the abdomen and pelvis with oral, IV and r ectal contrast, and demonstrate a normal urinary bladder. The uterus and ovaries are not well evaluat ed on this exam, but appears stable. The kidneys, adrenals, pancreas and spleen are unremarkable. There is no mesenteric nor retroperitone al lymphadenopathy. Skeletal structures are unremarkable. The lung bases are clear. There is a small renal parenchymal st one within the lower poles of each kidney. Opacified small bowel loops appear normal with normal small bowel signature and no evidence of obstru ction. The psoas muscle is unremarkable. Patient is status post cholecystectomy. Skeletal structures are unremarkable. Impression: No acute intra-abdominal pathology.
--- NOTE | 2017-01-19 14:27 | PDOC(PROG) ---
Date and Time of Service: 01/19/2017 2p.m. Interval History: Please see my office note from this morning. Patient arrived to the emergency room and was evaluated by Dr. Braxton. Extensive lab work was done and is essentially normal. CT scan with oral and rectal and IV contrast has just been read and she has no acute intra-abdominal pathology. The appendix was not seen but there is no inflammation in the right lower quadrant. There is no intraperitoneal fluid. There is no free air. There are no inflammatory changes. Serum alcohol on it approximately 11:30 this morning was 81. Amylase and lipase are normal. Patient admitted to drinking champagne last night. She felt worse after consuming the alcohol. She has gotten a dose of Toradol and Protonix. She has a scopolamine patch on and her nausea is subsiding. Objective : Data - Labs CBC and BMP: 01/19/17 11:43 01/19/17 11:34 Labs - Last 24 Hours: Laboratory Results 01/19/17 01/19/17 01/19/17 Range/Units 11:34 11:35 11:43 WBC 6.55 (4.8-10.8) 10^3/uL RBC 4.36 (4.20-5.40) 10^6/uL Hgb 14.7 (12.0-16.0) g/dL Hct 42.1 (37.0-47.0) % MCV 96.6 (81-99) FL MCH 33.7 H (27-31) PG MCHC 34.9 (33-37) g/dL RDW Std Deviation 41.5 (39-50) fL RDW Coeff of Drew 12.2 (11.5-14.5) % Plt Count 245 (140-350) 10*3/uL MPV 10.2 (7.4-12.2) FL Immature Gran % (Auto) 0.2 (0-5) % Neut % (Auto) 70.2 (50-80) % Lymph % (Auto) 24.4 (10-50) % [place] % (Auto) 4.3 L (5-15) % Eos % (Auto) 0.6 (0-8) % Baso % (Auto) 0.3 (0-1) % Immature Gran # (Auto) 0.01 10*3/UL Neut # (Auto) 4.60 10*3/UL Lymph # (Auto) 1.60 10*3/uL [place] # (Auto) 0.28 L (0.3-0.8) 10*3/UL Eos # (Auto) 0.04 10*3/UL Baso # (Auto) 0.02 10*3/UL WBC Morphology Comment Normal morphology (NORM) Plt Morphology Comment Normal morphology (NORM) RBC Morph Comment Normal morphology (NORM) Sodium 147 H D (135-145) meq/L Potassium 3.9 (3.8-5.2) meq/L Chloride 106 (98-112) meq/L Carbon Dioxide 23 (23-33) meq/L Anion Gap 18 (5-20) BUN 16 (7-22) mg/dL Creatinine 0.7 (0.50-1.20) mg/dL Estimated GFR > 60 (>60 ml/min/1.73m(2)) BUN/Creatinine Ratio 22.85 H (6-20) Glucose 71 L (78-110) mg/dL Calculated Osmolality 302.0 H (267-292) mOsm/kg Lactic Acid 3.2 H (0.70-2.10) MMOL/L Calcium 9.1 (8.7-10.7) mg/dL Magnesium 1.8 (1.6-2.4) mg/dL Total Bilirubin 0.6 (0.3-1.2) mg/dL AST 36 (8-39) IU/L ALT 48 (9-52) IU/L Alkaline Phosphatase 61 (38-126) IU/L Total Creatine Kinase 71 (30-136) IU/L CK-MB (CK-2) < 0.22 (0.00-5.00) NG/ML C-Reactive Protein < 0.5 (0.0-0.9) mg/dL Total Protein 7.6 (6.1-8.0) g/dL Albumin 4.6 (3.5-4.8) g/dL Globulin 3.0 (2.50-4.10) g/dL Albumin/Globulin Ratio 1.50 (1.3-2.0) mg/g Amylase 53 (30-110) U/L Lipase 51 (23-300) IU/L Serum HCG, Qual Negative Ur Collection Type Urine Color Urine Clarity (CLEAR) Urine pH (5.0-8.5) Ur Specific [place] (1.005-1.030) Urine Protein (NEG) mg/dl Urine Glucose (UA) (NEG) mg/dL Urine Ketones (NEG) Urine Occult Blood (NEG) Urine Nitrate (NEG) Urine Bilirubin (NEG) Urine Urobilinogen (0.2) EU/dL Ur Leukocyte Esterase (NEG) Urine RBC (NONE) /hpf Urine WBC (NONE) Ur Squamous Epith Cells (NONE) Ur Renal Epithelial Cell (NONE) Urine Crystals Urine Bacteria (NONE) Urine Casts (NONE) Urine Mucus (NONE) Urine Trichomonas (NONE) Urine Yeast (NONE) Ur Culture Indicated? Serum Alcohol 81 H (0-10) mg/dL 01/19/17 Range/Units 11:52 WBC (4.8-10.8) 10^3/uL RBC (4.20-5.40) 10^6/uL Hgb (12.0-16.0) g/dL Hct (37.0-47.0) % MCV (81-99) FL MCH (27-31) PG MCHC (33-37) g/dL RDW Std Deviation (39-50) fL RDW Coeff of Drew (11.5-14.5) % Plt Count (140-350) 10*3/uL MPV (7.4-12.2) FL Immature Gran % (Auto) (0-5) % Neut % (Auto) (50-80) % Lymph % (Auto) (10-50) % [place] % (Auto) (5-15) % Eos % (Auto) (0-8) % Baso % (Auto) (0-1) % Immature Gran # (Auto) 10*3/UL Neut # (Auto) 10*3/UL Lymph # (Auto) 10*3/uL [place] # (Auto) (0.3-0.8) 10*3/UL Eos # (Auto) 10*3/UL Baso # (Auto) 10*3/UL WBC Morphology Comment (NORM) Plt Morphology Comment (NORM) RBC Morph Comment (NORM) Sodium (135-145) meq/L Potassium (3.8-5.2) meq/L Chloride (98-112) meq/L Carbon Dioxide (23-33) meq/L Anion Gap (5-20) BUN (7-22) mg/dL Creatinine (0.50-1.20) mg/dL Estimated GFR (>60 ml/min/1.73m(2)) BUN/Creatinine Ratio (6-20) Glucose (78-110) mg/dL Calculated Osmolality (267-292) mOsm/kg Lactic Acid (0.70-2.10) MMOL/L Calcium (8.7-10.7) mg/dL Magnesium (1.6-2.4) mg/dL Total Bilirubin (0.3-1.2) mg/dL AST (8-39) IU/L ALT (9-52) IU/L Alkaline Phosphatase (38-126) IU/L Total Creatine Kinase (30-136) IU/L CK-MB (CK-2) (0.00-5.00) NG/ML C-Reactive Protein (0.0-0.9) mg/dL Total Protein (6.1-8.0) g/dL Albumin (3.5-4.8) g/dL Globulin (2.50-4.10) g/dL Albumin/Globulin Ratio (1.3-2.0) mg/g Amylase (30-110) U/L Lipase (23-300) IU/L Serum HCG, Qual Ur Collection Type Clean catch urine Urine Color Yellow Urine Clarity Clear (CLEAR) Urine pH 7.0 (5.0-8.5) Ur Specific [place] 1.020 (1.005-1.030) Urine Protein 30 (NEG) mg/dl Urine Glucose (UA) Negative (NEG) mg/dL Urine Ketones 15 (NEG) Urine Occult Blood Negative (NEG) Urine Nitrate Negative (NEG) Urine Bilirubin Negative (NEG) Urine Urobilinogen 1.0 (0.2) EU/dL Ur Leukocyte Esterase Negative (NEG) Urine RBC None (NONE) /hpf Urine WBC None (NONE) Ur Squamous Epith Cells Moderate (NONE) Ur Renal Epithelial Cell None (NONE) Urine Crystals None Urine Bacteria None (NONE) Urine Casts None (NONE) Urine Mucus Few (NONE) Urine Trichomonas None (NONE) Urine Yeast None (NONE) Ur Culture Indicated? Culture not set Serum Alcohol (0-10) mg/dL - Vital Signs Vital Signs and I&O: Vital Signs - Last Taken Temperature 97.6 F 01/19/17 11:13 Pulse Rate 94 01/19/17 11:13 Respiratory Rate 16 01/19/17 11:13 Blood Pressure 134/100 01/19/17 11:13 Pulse Ox 97 01/19/17 11:13 Objective : Exam - General General Appearance: Cooperative, Mild Distress - Respiratory Respiratory Exam: Clear to Auscultation - Bilaterally, Breathing Non Labored - Cardiovascular Cardiovascular Exam: RRR, No Murmur - GI/Abdominal GI/Abdominal Exam: Non Distended, Soft, Guarding, Diminished Bowel Sounds Additional GI/Abdominal Exam Details: Diffusely tender predominantly left lower quadrant and left mid abdomen. - Neurological Neurological Exam: Alert, Oriented x 3 - Psychiatric Psychiatric Exam: Normal Affect, Normal Mood Assessment and Plan - Patient Problems (1) Left lower quadrant abdominal pain of unknown etiology Current Visit: No Status: Acute Priority: High Diagnosis Date: 01/13/17 Comment: Etiology remains unclear. Not an acute surgical abdomen. Question Crohn's disease or ulcerative colitis with her bloody diarrhea. Patient will be admitted to the hospitalist service. We will plan a bowel prep this afternoon. Plan upper and lower endoscopy tomorrow.The procedure has been discussed with the patient in complete yet simple terms including benefits, risks, and alternatives. All questions have been answered. Informed consent has been obtained. Pending findings on endoscopy consider surgical laparoscopy. (2) Diarrhea Current Visit: No Status: Acute Priority: Medium Diagnosis Date: 01/13/17 Comment: Patient reports she is now having bloody diarrhea. Proceed with endoscopy. (3) Nausea & vomiting Current Visit: No Status: Acute Priority: Medium Diagnosis Date: 01/13/17 Comment: Treat with appropriate antinausea medications. (4) BRBPR (bright red blood per rectum) Current Visit: Yes Status: Acute Priority: High Diagnosis Date: 01/13/17 Comment: Proceed with EGD and colonoscopy tomorrow. (5) Alcohol intoxication Current Visit: Yes Status: Acute Priority: Medium Comment: Patient admits to drinking yesterday but not today. There may be underlying psychosocial problems.
[2017-01-19] MEDS ORDERED: 1/2NS + 20mEq KCL 1,000 ML PRIMARY IV SCH (15:05)
[2017-01-19] MEDS ORDERED: LIDOCAINE W/ SODIUM BICARB 0.5 ML SYR SUBD PRN ×2 (15:05)
[2017-01-19] MEDS ORDERED: PROCHLORPERAZINE MALEATE RECTAL PRN (15:05)
[2017-01-19] MEDS ORDERED: ONDANSETRON 4 MG/2 ML VIAL IVP PRN (15:05)
[2017-01-19] MEDS ORDERED: SUPREP BOWEL PREP KIT PO ONE (15:05)
[2017-01-19 15:43] LABS: AMPHETAMINE SCREEN NEGATIVE (NEG); CANNABINOID SCREEN,URINE NEGATIVE (NEG); COCAINE SCREEN NEGATIVE (NEG); METHADONE URINE SCREEN NEGATIVE (NEG); METHAMPHETAMINES SCREEN,URINE NEGATIVE (NEG); OPIATE SCREEN,URINE NEGATIVE (NEG); URINE SAMPLE TYPE VOIDED SPECIMEN
[2017-01-19] MEDS: NORMAL SALINE 10 ML SYRINGE FLUSH IVP PRN ×2 (16:19→23:31)
--- NOTE | 2017-01-19 17:00 | CONSULT ---
Consult Note - Consult Reason for Consult: Other (Hypernatremia consult by Dr. Egan) Requesting Physician: Julisa Primary Care Provider: PAVITHRA Wilson - History of Present Illness History of Present Illness: Is a very nice 31-year-old female who presents to the ER with lower quadrant pain, she was evaluated for the same type of pain last Wednesday at that time CT scan of the abdomen was done plus the blood work and admitted by Dr. Mk Egan. The next morning the apparently was improved and was discharged home and her pain continued to get worse over the last few days. Her pain is mainly in the left lower quadrant region nothing on the right side and some in the epigastric area also has some nausea and vomiting and also some bloody diarrhea which started over 24 hours ago she had 4 episodes in the last 24 hours she was seen by Dr. Egan this morning was not feeling well and was referred back to the emergency room where she underwent another CT scan and this is being reviewed by Dr. Mk Egan and most likely patient will be prepped and will have a EGD colonoscopy tomorrow. Hospitalist service was consulted for hypernatremia. Past Medical History Medical History: History of peptic ulcers. History of ovarian cysts. Surgical History: Status post laparoscopic cholecystectomy. Status post IUD insertion. Tobacco Use: Never Smoker Substance Use Type: None Review of Systems - Review of Systems All Systems: Reviewed & No Additional Complaints Except as Stated - Respiratory Respiratory: DENIES: Negative System Review, Cough, Sputum, Dyspnea At Rest, Dyspnea with Exertion, Pleuritic Pain, Hemoptysis, Wheezing, Other, See HPI - Cardiovascular Cardiovascular: DENIES: Negative System Review, Chest Pain, Edema, Syncope, Palpitations, Orthopnea, Paroxysmal Nocturnal Dyspnea, Other, See HPI - Gastrointestinal Gastrointestinal / Abdominal: REPORTS: Vomiting, Diarrhea, Bloody Stool - Neurological Neurologic: DENIES: Negative System Review, Headache, Numbness/Paresthesia, Tremors, Weakness, Seizures, Head Trauma, LOC, Dizziness, Confusion, Memory Loss , Difficulty Walking, Incoordination, Other, See HPI Medication / Allergies Home Medications: Home Medications Medication Instructions Recorded Confirmed Type Alprazolam [Xanax] 1 tab PO PRN #14 tab 11/18/16 01/19/17 Clinic Melatonin 4 cap PO bedtime PRN cap 01/19/17 01/19/17 History Allergies/Adverse Reactions: Allergies Allergy/AdvReac Type Severity Reaction Status Date / Time SEAFOOD Allergy Mild Anaphylaxis Uncoded 01/19/17 15:21 SEASONAL Allergy HEADACHE Uncoded 01/19/17 15:21 Exam - Vitals Vital Signs: Vital Signs Temperature 98.7 F Temperature Source Temporal Artery Scan Pulse Rate 95 Respiratory Rate 20 Blood Pressure 134/79 Pulse Ox 97 Oxygen Delivery Method Room Air Height 5 ft 8 in Weight 65.862 kg - General General Appearance: POSITIVE: No Acute Distress, Cooperative - Head Head Exam: POSITIVE: Normal Inspection, Normocephalic, Atraumatic - Eye Eye Exam: POSITIVE: Normal Appearance, PERRL, EOMI - Respiratory Respiratory Exam: POSITIVE: Clear to Auscultation - Bilaterally, Breathing Non Labored, Normal To Percussion, Normal to Percussion and Palpation - Cardiovascular Cardiovascular Exam: POSITIVE: RRR, No Murmur, No Clicks, No Gallops - GI/Abdominal Additional GI/Abdominal Exam Details: She does have tenderness in the left lower quadrant extending up to mid abdomen but nothing on the right side - Extremities Extremities Exam: POSITIVE: No Clubbing Present, No Edema Present, No Cyanosis Present - Neurological Neurological Exam: POSITIVE: Alert, Oriented x 3, Reflexes Normal, Normal Gait, CN II-XII Intact, No Facial Droop Results - Labs CBC and BMP: 01/19/17 11:43 01/19/17 11:34 Labs - Last 24 Hours: Laboratory Results 01/19/17 Range/Units 15:15 Ur Collection Type Voided specimen U Specif Grav (Refrac) 1.020 Urine Opiates Screen Negative (NEG) Ur Buprenorphine Negative (NEG) Ur Oxycodone Screen Negative (NEG) Urine Methadone Screen Negative (NEG) Ur Propoxyphene Screen Negative (NEG) Barbiturate Screen Negative (NEG) U Tricyclic Antidepress Negative (NEG) Phencyclidine Screen Negative (NEG) Amphetamines Screen Negative (NEG) U Methamphetamines Scrn Negative (NEG) Benzodiazepines Screen Positive H (NEG) Cocaine Screen Negative (NEG) U Marijuana (THC) Screen Negative (NEG) Assessment and Plan - Patient Problems (1) Abdominal pain Current Visit: Yes Status: Acute Comment: CT scan abdomen and pelvis results pending Dr. Egan is a evaluating this she is scheduled for EGD colonoscopy tomorrow stool cultures were sent diarrhea is not copious (2) Nausea & vomiting Current Visit: Yes Status: Acute Priority: Medium Diagnosis Date: 01/13/17 Comment: Seems to be doing really well with scopolamine patch (3) Hypernatremia Current Visit: Yes Status: Acute Comment: Patient is word deficient we will start D5 at 75 an hour I will give her 100 mg of thiamine IV since the patient has some alcohol on board she admits drinking last night some champagne. We will recheck a CMP in 4 hours we want her sodium to be around 140 and not be correct more than points in the next 10 hours. We will also repeat a CMP in a.m. if sodium is increasing instead of decreasing we will up the fluid rate to 50 mL per hour more (4) Pain Current Visit: Yes Status: Acute Comment: We will write for some when necessary fentanyl she does have Toradol ordered
[2017-01-19] MEDS ORDERED: POTASSIUM CHLORIDE 20 MEQ TAB PO ONE (17:06)
[2017-01-19] MEDS ORDERED: THIAMINE 100 MG/1 ML - 2 ML IV SCH (17:15)
[2017-01-19] MEDS: D5W 1,000 ML PRIMARY IV SCH (17:25)
[2017-01-19] MEDS: KETOROLAC 15 MG/1 ML VIAL IVP SCH ×2 (17:26→23:30)
[2017-01-19] MEDS: fentaNYL Inj 100 MCG/2 ML VIAL IVP PRN ×2 (17:27→20:27)
[2017-01-19 21:45] LABS: BLOOD UREA NITROGEN 16 mg/dL (7-22); BUN/CREATININE RATIO 22.85 (6-20); CALCIUM 8.4 mg/dL (8.7-10.7); EST GLOMERULAR FILTRATION > 60 (>60 ml/min/1.73m(2))
[2017-01-20 04:49] LABS: BASOPHILS # (AUTO) 0.03 10*3/UL; BASOPHILS % (AUTO) 0.6 % (0-1); EOSINOPHILS # (AUTO) 0.17 10*3/UL; EOSINOPHILS % (AUTO) 3.6 % (0-8); HEMATOCRIT 35.8 % (37.0-47.0); HEMOGLOBIN 12.7 g/dL (12.0-16.0); LYMPHOCYTES # (AUTO) 1.53 10*3/uL; MEAN CORPUSCULAR HGB CONC 35.5 g/dL (33-37); MEAN PLATELET VOLUME 10.7 FL (7.4-12.2); MONOCYTES # (AUTO) 0.53 10*3/UL (0.3-0.8); MONOCYTES % (AUTO) 11.1 % (5-15); NEUTROPHILS % (AUTO) 52.4 % (50-80); RED BLOOD COUNT 3.73 10^6/uL (4.20-5.40)
[2017-01-20 04:53] LABS: PLATELET MORPHOLOGY COMMENT NORMAL MORPHOLOGY (NORM); RBC MORPHOLOGY COMMENT NORMAL MORPHOLOGY (NORM); WBC MORPHOLOGY COMMENT NORMAL MORPHOLOGY (NORM)
[2017-01-20 05:00] LABS: BLOOD UREA NITROGEN 13 mg/dL (7-22); BUN/CREATININE RATIO 18.57 (6-20); CALCIUM 8.8 mg/dL (8.7-10.7); EST GLOMERULAR FILTRATION > 60 (>60 ml/min/1.73m(2)); LIPASE 43 IU/L (23-300); SERUM ALBUMIN 3.7 g/dL (3.5-4.8)
[2017-01-20] MEDS: KETOROLAC 15 MG/1 ML VIAL IVP SCH (05:22)
[2017-01-20] MEDS: D5W 1,000 ML PRIMARY IV SCH (05:59)
[2017-01-20] MEDS ORDERED: LIDOCAINE 2% VISCOUS(20 MG/1 ML) - 15 ML UD CUP PO ONE (07:13)
[2017-01-20] MEDS ORDERED: fentaNYL Inj 100 MCG/2 ML VIAL ONE (07:14)
[2017-01-20] MEDS ORDERED: Pantoprazole Inj 40 MG in Normal Saline Flush 10 ML IVP SCH (09:00)
[2017-01-20] MEDS ORDERED: Lactated Ringers 1,000 ML PRIMARY IV SCH (11:00)
[2017-01-20] MEDS ORDERED: Lactated Ringers 1,000 ML PRIMARY IV ONE (12:52)
[2017-01-20 13:16] VITALS: RESP 14; TEMP 97.7
--- NOTE | 2017-01-20 13:25 | PDOC(PROG) ---
Date and Time of Service: 01/20/2017. Patient seen at noon. Interval History: Patient reports the nausea has essentially resolved. She tolerated the bowel prep. She's had no blood in her bowel movements since admission and not with the prep either. She did pass a quarter-sized ball of stool and started to feel much better. This was after the prep was done. She is anxious to proceed with her endoscopy. Objective : Data - Labs CBC and BMP: 01/20/17 04:35 01/20/17 04:35 Labs - Last 24 Hours: Laboratory Results 01/19/17 01/19/17 01/20/17 Range/Units 15:15 21:33 04:35 WBC 4.77 L (4.8-10.8) 10^3/uL RBC 3.73 L (4.20-5.40) 10^6/uL Hgb 12.7 (12.0-16.0) g/dL Hct 35.8 L (37.0-47.0) % MCV 96.0 (81-99) FL MCH 34.0 H (27-31) PG MCHC 35.5 (33-37) g/dL RDW Std Deviation 40.5 (39-50) fL RDW Coeff of Drew 11.9 (11.5-14.5) % Plt Count 184 (140-350) 10*3/uL MPV 10.7 (7.4-12.2) FL Immature Gran % (Auto) 0.2 (0-5) % Neut % (Auto) 52.4 (50-80) % Lymph % (Auto) 32.1 (10-50) % [place] % (Auto) 11.1 (5-15) % Eos % (Auto) 3.6 (0-8) % Baso % (Auto) 0.6 (0-1) % Immature Gran # (Auto) 0.01 10*3/UL Neut # (Auto) 2.50 10*3/UL Lymph # (Auto) 1.53 10*3/uL [place] # (Auto) 0.53 (0.3-0.8) 10*3/UL Eos # (Auto) 0.17 10*3/UL Baso # (Auto) 0.03 10*3/UL WBC Morphology Comment Normal morphology (NORM) Plt Morphology Comment Normal morphology (NORM) RBC Morph Comment Normal morphology (NORM) Sodium 135 D 135 (135-145) meq/L Potassium 3.8 4.0 (3.8-5.2) meq/L Chloride 103 105 (98-112) meq/L Carbon Dioxide 22 L 20 L (23-33) meq/L Anion Gap 10 10 (5-20) BUN 16 13 (7-22) mg/dL Creatinine 0.7 0.7 (0.50-1.20) mg/dL Estimated GFR > 60 > 60 (>60 ml/min/1.73m(2)) BUN/Creatinine Ratio 22.85 H 18.57 (6-20) Glucose 121 H 93 (78-110) mg/dL Calculated Osmolality 281.0 279.0 (267-292) mOsm/kg Calcium 8.4 L 8.8 (8.7-10.7) mg/dL Total Bilirubin 1.0 D (0.3-1.2) mg/dL AST 35 (8-39) IU/L ALT 48 (9-52) IU/L Alkaline Phosphatase 44 (38-126) IU/L Total Protein 6.1 (6.1-8.0) g/dL Albumin 3.7 (3.5-4.8) g/dL Globulin 2.3 L (2.50-4.10) g/dL Albumin/Globulin Ratio 1.60 (1.3-2.0) mg/g Amylase 44 (30-110) U/L Lipase 43 (23-300) IU/L Ur Collection Type Voided specimen U Specif Grav (Refrac) 1.020 Urine Opiates Screen Negative (NEG) Ur Buprenorphine Negative (NEG) Ur Oxycodone Screen Negative (NEG) Urine Methadone Screen Negative (NEG) Ur Propoxyphene Screen Negative (NEG) Barbiturate Screen Negative (NEG) U Tricyclic Antidepress Negative (NEG) Phencyclidine Screen Negative (NEG) Amphetamines Screen Negative (NEG) U Methamphetamines Scrn Negative (NEG) Benzodiazepines Screen Positive H (NEG) Cocaine Screen Negative (NEG) U Marijuana (THC) Screen Negative (NEG) - Vital Signs Vital Signs and I&O: Vital Signs - Last Taken Temperature 97.7 F 01/20/17 13:15 Pulse Rate 76 01/20/17 13:15 Respiratory Rate 14 01/20/17 13:15 Blood Pressure 91/64 01/20/17 13:15 Pulse Ox 100 01/20/17 11:10 Intake and Output (24hr x 4 totals) 01/18/17 01/19/17 01/20/17 01/21/17 05:59 05:59 05:59 05:59 Intake Total 1260 510 Output Total 600 Balance 1260 -90 Objective : Exam - General General Appearance: No Acute Distress, Cooperative - Respiratory Respiratory Exam: Clear to Auscultation - Bilaterally, Breathing Non Labored - Cardiovascular Cardiovascular Exam: RRR, No Murmur - GI/Abdominal GI/Abdominal Exam: Normal Bowel Sounds, Non Distended, Soft Additional GI/Abdominal Exam Details: Minimal left lower quadrant tenderness. Assessment and Plan - Patient Problems (1) Left lower quadrant abdominal pain of unknown etiology Current Visit: No Status: Acute Priority: High Diagnosis Date: 01/13/17 Comment: Proceed with esophagogastroduodenoscopy and colonoscopy. (2) Diarrhea Current Visit: No Status: Acute Priority: Medium Diagnosis Date: 01/13/17 Comment: None since the bowel prep. (3) Nausea & vomiting Current Visit: Yes Status: Acute Priority: Medium Diagnosis Date: 01/13/17 Comment: Resolved. (4) BRBPR (bright red blood per rectum) Current Visit: Yes Status: Acute Priority: High Diagnosis Date: 01/13/17 Comment: Resolved. (5) Alcohol intoxication Current Visit: Yes Status: Acute Priority: Medium Diagnosis Date: 01/19/17 Comment: Resolved.
--- NOTE | 2017-01-20 13:32 | GEN.OPNOTE ---
EGD / Colonoscopy Report Surgery Date: 01/20/17 Preoperative Diagnosis: Left lower quadrant abdominal pain, nausea and vomiting , fevers, diarrhea, bright red blood per rectum. Postoperative Diagnosis: Same. Procedure: #1 esophagogastroduodenoscopy with biopsy. #2 complete colonoscopy with intubation of the terminal ileum and multiple random biopsies. Surgeon: Antonio Egan MD Anesthesia Provider: Oliver Nguyễn CRNA Anesthesia Type: MAC Indications: See preoperative diagnosis. Patient has a history of hemorrhagic gastritis. She been having left lower quadrant abdominal pain and reports bloody diarrhea at home. EGD Findings: Esophagus: [Normal] GE Junction : [Normal] Fundus : [Normal] Body : [Normal] Prepyloric : [Normal] Small Intestine : [Normal] A lubricated flexible upper endoscope was inserted and passed through the esophagus and stomach into the duodenum. The duodenum and duodenal bulb were unremarkable. The pyloric channel was widely patent. The scope was withdrawn into the stomach. Random antral biopsies were taken. Hemostasis was assured. The scope was retroflexed. The upper body and fundus of the stomach was unremarkable. The scope was straightened. Air was aspirated. The scope was withdrawn into the distal esophagus. Multiple biopsies were taken at and above the Z line. Hemostasis was assured. The scope was withdrawn through the remainder of a normal-appearing esophagus and brought through the hypopharynx under suction completing that portion of the procedure. Colonoscopy Findings: Prep : [Excellent] Cecum : [Normal] Ascending : [Normal] Transverse : [Normal] Sigmoid : [Normal] Rectum : [Normal] Digital Rectal Exam : [Normal] Terminal ileum:[Visually normal] A lubricated flexible colonoscope was inserted and passed to the blind end of the cecum. The terminal ileum was intubated. The mucosa was unremarkable. Multiple biopsies were taken. Hemostasis was assured. The scope was withdrawn back into the cecum. Air was aspirated as the scope was withdrawn. Random biopsies were taken from the right colon, transverse colon, sigmoid colon and rectum. Visually entire colonoscopy was normal without polyp, tumor, neoplastic mass, infectious or inflammatory process. There was no blood in the bowel. The scope was withdrawn completing the procedure. Patient tolerated all aspects of the procedure well without complication. She was taken to outpatient surgery in stable condition. As she is improved she can probably be discharged home. She can follow-up with me in the office in a week or 2. Really nothing else to add surgically. If her pain returns consider a Meckel's scan.
--- NOTE | 2017-01-20 14:53 | DCSUMMARY ---
Hospitalization Summary Admit Date: 01/19/17 Discharge Date: 01/20/17 Primary Diagnosis:: gastrointestinal pain Hospital Course: This is a very pleasant 31-year-old female who was admitted in the setting of recurrent gastrointestinal pain, abdominal pain, nausea, and diarrhea. Workup on diarrhea was negative for infection. EGD and colonoscopy were done today and they were negative. A CT scan of the abdomen and pelvis was significant for some lower pole kidney stones that are nonobstructing but otherwise negative for any particular findings. The patient does admit to me that she's had some depression symptoms. She did well on Lexapro for about 3 months post delivery, and has had some increased stresses at home. She like to go back on her Lexapro which I'm willing to do. In addition to biopsies pending from EGD and colonoscopy, patient has antibody studies for celiac disease pending. At this time, the patient would like to go home. She denies any complaints of chest pain, shortness breath, and states nausea and vomiting is controlled. She does not think she needs any antiemetics at home. Assessment and Plan: 1. As per discharge assessments noted 2. Disposition: Patient is discharged home. 3. Condition on discharge, stable and improved. 4. Diet: regular diet 5. Activities: resume normal activities 6. Follow-Up: 1. Visit with primary care provider in one to 2 weeks. 2. Visit surgery in 1 week to go over biopsy results. 7. Medications at the Time of Discharge: Home Medications Medication Instructions Recorded Confirmed Type Melatonin 4 cap PO bedtime PRN cap 01/19/17 01/19/17 History Escitalopram Oxalate [Lexapro] 10 mg PO DAILY #30 tablet 01/20/17 Rx Pantoprazole Sodium [Protonix] 40 mg PO DAILY #30 tablet 01/20/17 Rx 8. Time, care, counseling and coordination of care for this discharge is greater than 30 minutes. Exam - Vitals Vital Signs: Vital Signs Temperature 97.7 F Temperature Source Temporal Artery Scan Pulse Rate [Pulse Oximeter 67 Right] Pulse Rate 77 Respiratory Rate 14 Blood Pressure [Left Arm] 147/87 Blood Pressure 151/66 Pulse Ox 99 Oxygen Delivery Method Room Air Height 5 ft 8 in Weight 143 lb 9.6 oz - General General Appearance: POSITIVE: No Acute Distress, Cooperative - Head Head Exam: POSITIVE: Normal Inspection, Normocephalic, Atraumatic - Respiratory Respiratory Exam: POSITIVE: Clear to Auscultation - Bilaterally, Breathing Non Labored - Cardiovascular Cardiovascular Exam: POSITIVE: RRR, No Murmur, No Clicks, No Gallops, No Rubs, No JVD - GI/Abdominal GI/Abdominal Exam: POSITIVE: Normal Bowel Sounds, Non Tender, Non Distended, Soft - Extremities Extremities Exam: POSITIVE: No Clubbing Present, No Edema Present, No Cyanosis Present - Neurological Neurological Exam: POSITIVE: Alert, Oriented x 3, No Facial Droop, Speech Intact / Clear, Moves All Extremities Equally Data Perinent Studies: Laboratory Results 01/19/17 01/19/17 01/19/17 Range/Units 11:34 11:35 11:43 WBC 6.55 (4.8-10.8) 10^3/uL RBC 4.36 (4.20-5.40) 10^6/uL Hgb 14.7 (12.0-16.0) g/dL Hct 42.1 (37.0-47.0) % MCV 96.6 (81-99) FL MCH 33.7 H (27-31) PG MCHC 34.9 (33-37) g/dL RDW Std Deviation 41.5 (39-50) fL RDW Coeff of Drew 12.2 (11.5-14.5) % Plt Count 245 (140-350) 10*3/uL MPV 10.2 (7.4-12.2) FL Immature Gran % (Auto) 0.2 (0-5) % Neut % (Auto) 70.2 (50-80) % Lymph % (Auto) 24.4 (10-50) % [place] % (Auto) 4.3 L (5-15) % Eos % (Auto) 0.6 (0-8) % Baso % (Auto) 0.3 (0-1) % Immature Gran # (Auto) 0.01 10*3/UL Neut # (Auto) 4.60 10*3/UL Lymph # (Auto) 1.60 10*3/uL [place] # (Auto) 0.28 L (0.3-0.8) 10*3/UL Eos # (Auto) 0.04 10*3/UL Baso # (Auto) 0.02 10*3/UL WBC Morphology Comment Normal morphology (NORM) Plt Morphology Comment Normal morphology (NORM) RBC Morph Comment Normal morphology (NORM) Sodium 147 H D (135-145) meq/L Potassium 3.9 (3.8-5.2) meq/L Chloride 106 (98-112) meq/L Carbon Dioxide 23 (23-33) meq/L Anion Gap 18 (5-20) BUN 16 (7-22) mg/dL Creatinine 0.7 (0.50-1.20) mg/dL Estimated GFR > 60 (>60 ml/min/1.73m(2)) BUN/Creatinine Ratio 22.85 H (6-20) Glucose 71 L (78-110) mg/dL Calculated Osmolality 302.0 H (267-292) mOsm/kg Lactic Acid 3.2 H (0.70-2.10) MMOL/L Calcium 9.1 (8.7-10.7) mg/dL Magnesium 1.8 (1.6-2.4) mg/dL Total Bilirubin 0.6 (0.3-1.2) mg/dL AST 36 (8-39) IU/L ALT 48 (9-52) IU/L Alkaline Phosphatase 61 (38-126) IU/L Total Creatine Kinase 71 (30-136) IU/L CK-MB (CK-2) < 0.22 (0.00-5.00) NG/ML C-Reactive Protein < 0.5 (0.0-0.9) mg/dL Total Protein 7.6 (6.1-8.0) g/dL Albumin 4.6 (3.5-4.8) g/dL Globulin 3.0 (2.50-4.10) g/dL Albumin/Globulin Ratio 1.50 (1.3-2.0) mg/g Amylase 53 (30-110) U/L Lipase 51 (23-300) IU/L Serum HCG, Qual Negative Ur Collection Type Urine Color Urine Clarity (CLEAR) Urine pH (5.0-8.5) Ur Specific [place] (1.005-1.030) U Specif Grav (Refrac) Urine Protein (NEG) mg/dl Urine Glucose (UA) (NEG) mg/dL Urine Ketones (NEG) Urine Occult Blood (NEG) Urine Nitrate (NEG) Urine Bilirubin (NEG) Urine Urobilinogen (0.2) EU/dL Ur Leukocyte Esterase (NEG) Urine RBC (NONE) /hpf Urine WBC (NONE) Ur Squamous Epith Cells (NONE) Ur Renal Epithelial Cell (NONE) Urine Crystals Urine Bacteria (NONE) Urine Casts (NONE) Urine Mucus (NONE) Urine Trichomonas (NONE) Urine Yeast (NONE) Ur Culture Indicated? Urine Opiates Screen (NEG) Ur Buprenorphine (NEG) Ur Oxycodone Screen (NEG) Urine Methadone Screen (NEG) Ur Propoxyphene Screen (NEG) Barbiturate Screen (NEG) U Tricyclic Antidepress (NEG) Phencyclidine Screen (NEG) Amphetamines Screen (NEG) U Methamphetamines Scrn (NEG) Benzodiazepines Screen (NEG) Cocaine Screen (NEG) U Marijuana (THC) Screen (NEG) Serum Alcohol 81 H (0-10) mg/dL 01/19/17 01/19/17 01/19/17 Range/Units 11:52 15:15 21:33 WBC (4.8-10.8) 10^3/uL RBC (4.20-5.40) 10^6/uL Hgb (12.0-16.0) g/dL Hct (37.0-47.0) % MCV (81-99) FL MCH (27-31) PG MCHC (33-37) g/dL RDW Std Deviation (39-50) fL RDW Coeff of Drew (11.5-14.5) % Plt Count (140-350) 10*3/uL MPV (7.4-12.2) FL Immature Gran % (Auto) (0-5) % Neut % (Auto) (50-80) % Lymph % (Auto) (10-50) % [place] % (Auto) (5-15) % Eos % (Auto) (0-8) % Baso % (Auto) (0-1) % Immature Gran # (Auto) 10*3/UL Neut # (Auto) 10*3/UL Lymph # (Auto) 10*3/uL [place] # (Auto) (0.3-0.8) 10*3/UL Eos # (Auto) 10*3/UL Baso # (Auto) 10*3/UL WBC Morphology Comment (NORM) Plt Morphology Comment (NORM) RBC Morph Comment (NORM) Sodium 135 D (135-145) meq/L Potassium 3.8 (3.8-5.2) meq/L Chloride 103 (98-112) meq/L Carbon Dioxide 22 L (23-33) meq/L Anion Gap 10 (5-20) BUN 16 (7-22) mg/dL Creatinine 0.7 (0.50-1.20) mg/dL Estimated GFR > 60 (>60 ml/min/1.73m(2)) BUN/Creatinine Ratio 22.85 H (6-20) Glucose 121 H (78-110) mg/dL Calculated Osmolality 281.0 (267-292) mOsm/kg Lactic Acid (0.70-2.10) MMOL/L Calcium 8.4 L (8.7-10.7) mg/dL Magnesium (1.6-2.4) mg/dL Total Bilirubin (0.3-1.2) mg/dL AST (8-39) IU/L ALT (9-52) IU/L Alkaline Phosphatase (38-126) IU/L Total Creatine Kinase (30-136) IU/L CK-MB (CK-2) (0.00-5.00) NG/ML C-Reactive Protein (0.0-0.9) mg/dL Total Protein (6.1-8.0) g/dL Albumin (3.5-4.8) g/dL Globulin (2.50-4.10) g/dL Albumin/Globulin Ratio (1.3-2.0) mg/g Amylase (30-110) U/L Lipase (23-300) IU/L Serum HCG, Qual Ur Collection Type Clean catch urine Voided specimen Urine Color Yellow Urine Clarity Clear (CLEAR) Urine pH 7.0 (5.0-8.5) Ur Specific [place] 1.020 (1.005-1.030) U Specif Grav (Refrac) 1.020 Urine Protein 30 (NEG) mg/dl Urine Glucose (UA) Negative (NEG) mg/dL Urine Ketones 15 (NEG) Urine Occult Blood Negative (NEG) Urine Nitrate Negative (NEG) Urine Bilirubin Negative (NEG) Urine Urobilinogen 1.0 (0.2) EU/dL Ur Leukocyte Esterase Negative (NEG) Urine RBC None (NONE) /hpf Urine WBC None (NONE) Ur Squamous Epith Cells Moderate (NONE) Ur Renal Epithelial Cell None (NONE) Urine Crystals None Urine Bacteria None (NONE) Urine Casts None (NONE) Urine Mucus Few (NONE) Urine Trichomonas None (NONE) Urine Yeast None (NONE) Ur Culture Indicated? Culture not set Urine Opiates Screen Negative (NEG) Ur Buprenorphine Negative (NEG) Ur Oxycodone Screen Negative (NEG) Urine Methadone Screen Negative (NEG) Ur Propoxyphene Screen Negative (NEG) Barbiturate Screen Negative (NEG) U Tricyclic Antidepress Negative (NEG) Phencyclidine Screen Negative (NEG) Amphetamines Screen Negative (NEG) U Methamphetamines Scrn Negative (NEG) Benzodiazepines Screen Positive H (NEG) Cocaine Screen Negative (NEG) U Marijuana (THC) Screen Negative (NEG) Serum Alcohol (0-10) mg/dL 01/20/17 Range/Units 04:35 WBC 4.77 L (4.8-10.8) 10^3/uL RBC 3.73 L (4.20-5.40) 10^6/uL Hgb 12.7 (12.0-16.0) g/dL Hct 35.8 L (37.0-47.0) % MCV 96.0 (81-99) FL MCH 34.0 H (27-31) PG MCHC 35.5 (33-37) g/dL RDW Std Deviation 40.5 (39-50) fL RDW Coeff of Drew 11.9 (11.5-14.5) % Plt Count 184 (140-350) 10*3/uL MPV 10.7 (7.4-12.2) FL Immature Gran % (Auto) 0.2 (0-5) % Neut % (Auto) 52.4 (50-80) % Lymph % (Auto) 32.1 (10-50) % [place] % (Auto) 11.1 (5-15) % Eos % (Auto) 3.6 (0-8) % Baso % (Auto) 0.6 (0-1) % Immature Gran # (Auto) 0.01 10*3/UL Neut # (Auto) 2.50 10*3/UL Lymph # (Auto) 1.53 10*3/uL [place] # (Auto) 0.53 (0.3-0.8) 10*3/UL Eos # (Auto) 0.17 10*3/UL Baso # (Auto) 0.03 10*3/UL WBC Morphology Comment Normal morphology (NORM) Plt Morphology Comment Normal morphology (NORM) RBC Morph Comment Normal morphology (NORM) Sodium 135 (135-145) meq/L Potassium 4.0 (3.8-5.2) meq/L Chloride 105 (98-112) meq/L Carbon Dioxide 20 L (23-33) meq/L Anion Gap 10 (5-20) BUN 13 (7-22) mg/dL Creatinine 0.7 (0.50-1.20) mg/dL Estimated GFR > 60 (>60 ml/min/1.73m(2)) BUN/Creatinine Ratio 18.57 (6-20) Glucose 93 (78-110) mg/dL Calculated Osmolality 279.0 (267-292) mOsm/kg Lactic Acid (0.70-2.10) MMOL/L Calcium 8.8 (8.7-10.7) mg/dL Magnesium (1.6-2.4) mg/dL Total Bilirubin 1.0 D (0.3-1.2) mg/dL AST 35 (8-39) IU/L ALT 48 (9-52) IU/L Alkaline Phosphatase 44 (38-126) IU/L Total Creatine Kinase (30-136) IU/L CK-MB (CK-2) (0.00-5.00) NG/ML C-Reactive Protein (0.0-0.9) mg/dL Total Protein 6.1 (6.1-8.0) g/dL Albumin 3.7 (3.5-4.8) g/dL Globulin 2.3 L (2.50-4.10) g/dL Albumin/Globulin Ratio 1.60 (1.3-2.0) mg/g Amylase 44 (30-110) U/L Lipase 43 (23-300) IU/L Serum HCG, Qual Ur Collection Type Urine Color Urine Clarity (CLEAR) Urine pH (5.0-8.5) Ur Specific [place] (1.005-1.030) U Specif Grav (Refrac) Urine Protein (NEG) mg/dl Urine Glucose (UA) (NEG) mg/dL Urine Ketones (NEG) Urine Occult Blood (NEG) Urine Nitrate (NEG) Urine Bilirubin (NEG) Urine Urobilinogen (0.2) EU/dL Ur Leukocyte Esterase (NEG) Urine RBC (NONE) /hpf Urine WBC (NONE) Ur Squamous Epith Cells (NONE) Ur Renal Epithelial Cell (NONE) Urine Crystals Urine Bacteria (NONE) Urine Casts (NONE) Urine Mucus (NONE) Urine Trichomonas (NONE) Urine Yeast (NONE) Ur Culture Indicated? Urine Opiates Screen (NEG) Ur Buprenorphine (NEG) Ur Oxycodone Screen (NEG) Urine Methadone Screen (NEG) Ur Propoxyphene Screen (NEG) Barbiturate Screen (NEG) U Tricyclic Antidepress (NEG) Phencyclidine Screen (NEG) Amphetamines Screen (NEG) U Methamphetamines Scrn (NEG) Benzodiazepines Screen (NEG) Cocaine Screen (NEG) U Marijuana (THC) Screen (NEG) Serum Alcohol (0-10) mg/dL Patient Problems - Patient Problem List (1) Gastrointestinal symptoms Current Visit: Yes Status: Acute (2) Depression Current Visit: Yes Status: Acute Qualifiers: Depression Type: major depressive disorder Major depression recurrence : recurrent Active/Remission status: currently active Major depression episode severity: moderate Qualified Description: Moderate episode of recurrent major depressive disorder Qualifier Code(s): (F33.1) Major depressive disorder, recurrent, moderate
[2017-01-23 15:21] LABS: TTG AB IGA <1.2 U/mL (())
[2017-01-26 20:01] LABS: IGA, SERUM 169 mg/dL (61 - 356)
== END 2017-01-20 15:28 | disposition home or self-care (01) | DRG 392 ==
LOC: ER 11:12 → MED/SURG 14:31 → OPS 01-20 11:25 → MED/SURG 01-20 13:51
PROVIDERS: ADMIT Surgery; ATTEND Family Medicine
PROC: 0DBL8ZX Excision of Transverse Colon, Via Natural or Artificial Opening Endoscopic, Diagnostic (ICD-10-PCS; 2017-01-20)
PROC: 0DBP8ZX Excision of Rectum, Via Natural or Artificial Opening Endoscopic, Diagnostic (ICD-10-PCS; 2017-01-20)
PROC: 0DBN8ZX Excision of Sigmoid Colon, Via Natural or Artificial Opening Endoscopic, Diagnostic (ICD-10-PCS; 2017-01-20)
PROC: 0DB68ZX Excision of Stomach, Via Natural or Artificial Opening Endoscopic, Diagnostic (ICD-10-PCS; principal; 2017-01-20 12:00)
PROC: 0DB58ZX Excision of Esophagus, Via Natural or Artificial Opening Endoscopic, Diagnostic (ICD-10-PCS; 2017-01-20 12:00)
DX: R10.32 Left lower quadrant pain (principal); K62.5 Hemorrhage of anus and rectum; E87.0 Hyperosmolality and hypernatremia; R11.2 Nausea with vomiting, unspecified; R50.9 Fever, unspecified; R19.7 Diarrhea, unspecified; F10.129 Alcohol abuse with intoxication, unspecified
CPT/HCPCS: 36415; 74177; 80048; 80053; 80305; 80320; 81001; 81003; 81376; 82150; 82550; 82553; 82784; 83605; 83690; 83735; 84703; 85025; 86140; 87046; 87205; 87328; 87329; 87493; 94761; 96361; 96374; 96375; 99284; J1885; J3010; J3411; J3490; J7030; J7060; J7120

== ENCOUNTER → 2017-04-08 | Outpatient (CLI) | payer BC ==
[2017-04-08 17:11] LABS: BASOPHILS % (AUTO) 0.3 % (0-1); EOSINOPHILS % (AUTO) 0.5 % (0-8); HEMATOCRIT 40.6 % (37.0-47.0); HEMOGLOBIN 14.5 g/dL (12.0-16.0); MEAN CORPUSCULAR HEMOGLOBIN 34.2 PG (27-31); MEAN CORPUSCULAR HGB CONC 35.7 g/dL (33-37); MEAN CORPUSCULAR VOLUME 95.8 FL (81-99); MEAN PLATELET VOLUME 10.4 FL (7.4-12.2); MONOCYTES % (AUTO) 6.9 % (5-15); NEUTROPHILS % (AUTO) 77.4 % (50-80); RED BLOOD COUNT 4.24 10^6/uL (4.20-5.40)
[2017-04-08 17:12] LABS: BASOPHILS # (AUTO) 0.03 10*3/UL; EOSINOPHILS # (AUTO) 0.05 10*3/UL; LYMPHOCYTES # (AUTO) 1.37 10*3/uL; MONOCYTES # (AUTO) 0.64 10*3/UL (0.3-0.8); NEUTROPHILS # (AUTO) 7.18 10*3/UL; PLATELET MORPHOLOGY COMMENT NORMAL MORPHOLOGY (NORM); RBC MORPHOLOGY COMMENT NORMAL MORPHOLOGY (NORM); WBC MORPHOLOGY COMMENT NORMAL MORPHOLOGY (NORM)
[2017-04-08 17:20] LABS: BLOOD UREA NITROGEN 14 mg/dL (7-22); CALCIUM 10.1 mg/dL (8.7-10.7); EST GLOMERULAR FILTRATION > 60 (>60 ml/min/1.73m(2)); SERUM ALBUMIN 5.2 g/dL (3.5-4.8)
--- NOTE | 2017-04-09 09:11 | EKG ---
[address] [address] Measurements Intervals [place] Rate: 123 P: 59 PA: 167 QRS: 77 QRSD: 85 T: 43 QT: 408 QTc: 481 Interpretive Statements SINUS TACHYCARDIA NONSPECIFIC T-WAVE ABNORMALITY ABNORMAL RHYTHM ECG Compared to ECG 11/07/2016 19:09:45 T-wave abnormality now present Electronically Signed On 04-12-17 08:48:14 MDT by Osmany Reed MD [email or web address]
== END ==
LOC: MOB EKG 16:40
PROVIDERS: ATTEND Family Medicine
DX: R07.9 Chest pain, unspecified (principal); R00.2 Palpitations; R00.0 Tachycardia, unspecified
CPT/HCPCS: 36415; 80053; 84484; 85025; 85379; 93005; 93010